=== PATIENT | male | born 1955 | race Caucasian/White ===

== ENCOUNTER → 2017-03-12 | Day surgery (SDC) | payer BC ==
[~2017-03-12] VITALS: Ht 185.4 cm; Wt 102.0 kg
[~2017-03-12] MED LIST: ACETAMINOPHEN 325 MG TAB PO PRN; AMLO-110 PO; ASPEC81 PO; ATOR10TA82 PO; ATROPINE SULFATE 0.1 MG/ML 5ML SYR IV PRN; BNC/40 PO; FENTANYL CITRATE INJ 50 MCG/1 ML 2 ML VIAL ONE; HEPARIN SOD (PORCINE) 1000 UNIT/ML 10 ML VIAL ONE; MIDAZOLAM HCL 1 MG/ML 2ML VIAL ONE; NITROGLYCERIN 0.4 MG SL PER TAB CHARGE SL PRN; NITROGLYCERIN/D5W 100MCG/ML 20ML SYR ONE; NiCARDipine HCL INJ 2.5 MG/ML 10 ML AMP ONE; SODIUM CHLORIDE 0.9% 1000ML 1,000 ML IV SCH; SODIUM CHLORIDE 0.9% 1000ML 250 ML IV PRN; VGR50 PO
[2017-03-12 08:38] VITALS: Ht 185.4 cm; Wt 102.0 kg
[2017-03-12 08:39] VITALS: BP 156/84; PULSE 55; TEMP 36.5; O2SAT 98
--- NOTE | 2017-03-12 10:37 | History & Physical Bridge Note ---
H&P Re-Evaluation Bridge Note: I have examined the patient, reviewed the History & Physical and in the interval since the performance of the History & Physical I have noted the following changes of clinical significance: No changes noted
--- NOTE | 2017-03-12 10:38 | Procedure Note ---
Pre-Mod Sedation Assessment General Date of Moderate Sedation: Mar 12, 2017. Vital Signs: Vital Signs Past 12 Hours Date Time Temp Pulse Resp B/P (MAP) Pulse Ox O2 Delivery O2 Flow Rate FiO2 03/12/17 10:30 47 15 121/72 (88) 99 Mask 2 03/12/17 08:39 36.5 55 16 156/84 98 Room Air Review Cardiovascular: regular rate, rhythm, no edema, no gallop, no JVD, no murmur Lungs: lungs clear Airway Class: II Pre-Sedation Airway Assessment Oral Cavity: WNL Short Thick Neck: No Hx of Sleep Apnea: No Smoking Status: Never Smoker Procedure Planning Contraindications-for Mod Sed: None Yes Notes The planned sedation has been discussed with the patient and consent obtained. I have identified the patient, determined the appropriateness of sedation and have assessed the patient immediately prior to the procedure. All medicine(s) and interventions are by my order.
--- NOTE | 2017-03-12 10:52 | [facility] Post Operative Brief Note ---
Preliminary Procedure Note Procedure Date Mar 12, 2017. Pre-Procedure Diagnosis Angina AUC Score 7 Post-Procedure Diagnosis Mild CAD Procedure(s) Performed Coronary Angiography Leather Polisher Dr. Quirino Jama Office Services Clerk(s) Mary Marsh Estimated Blood Loss <15cc Medication(s) Heparin (5000u IV), Nicardipine (250mcg intraarterial after sheath insertion), Nitroglycerin (200mcg intraarterial after sheath insertion), Lidocaine 1% ( local infiltration) Preliminary Findings Right dominant coronary anatomy Very large coronary artery caliber with mild ectasia Sinus bradycardia Recommendations Medical therapy and/or Counseling Specimens None Anesthesia Versed 1 mg IV, Fentanyl 12.5mcg IV Procedural Complication(s) None Disposition Groundskeeper Holding/Recovery
--- NOTE | 2017-03-12 10:55 | Discharge Instructions ---
Discharge Instructions Procedure Procedure Date: Mar 12, 2017. Reason for Visit: Unstable Angina *Dr. Jama. Discharge Discharge Date: Mar 12, 2017. Discharge Diagnosis: Large caliber coronary anatomy with mild coronary ectasia and no obstruction Last Recorded Wt (Kilograms): 102 Anesthesia Post Anesthesia Instructions: If you have had General Anesthesia or IV Sedation: * Do not drive today. * Resume driving when surgeon permits. * Do not make important decisions or sign legal documents today. * Call surgeon for: 1. Temperature elevations greater than 101 degrees F. 2. Uncontrollable pain. 3. Excessive bleeding. 4. Persistent nausea and vomiting. 5. Medication intolerance (nausea, vomiting or rash). * For nausea and vomiting use only clear liquids such as: tea, soda, bouillon until nausea subsides, then gradually increase diet as tolerated. * If you have any concerns or questions, call your surgeon's office. If physician is unavailable and it is an emergency, call 911 or go to the nearest emergency room. Instructions Activity Recommendations: limitations as noted below Recommended Home Diet: no limitations Allergies: Coded Allergies: No Known Drug Allergy (Verified Allergy, Unknown, `, 05/29/16) Provider Instructions ACTIVITY RECOMMENDATIONS: Excess manipulation of the wrist should be avoided for the next 24-48 hours. * No lifting over 2 pounds (approximately a 1/2 gallon of milk) with the utilized arm for 24 hours. * No strenuous activity such as bowling or tennis for 3 days. * Keep the site of the procedure covered with a bandage for 24 hours. *You may shower the day after the procedure. Do not take a tub bath or submerge the puncture site in water for the next 3 days. *Do not operate any motorized equipment for 3 days. SPECIAL CARE INSTRUCTIONS: The site may be slightly bruised and sore following your procedure. Should any of the following occur, contact the Dr. who performed your procedure. 1. Redness/inflammation, swelling, chills, or fever, or colored drainage at procedure site within 3-7 days after your procedure. 2. Coldness, discoloration, ongoing numbness, severe pain, or swelling. Expect mild tingling of hand and tenderness at the puncture site for up to three days. If this persists beyond three days, or other symptoms develop, notify the Dr. who performed your procedure. BLEEDING: If the procedure site on your wrist begins to bleed, do not panic 1. Place 1 or 2 fingers firmly just slightly above the insertion site to stop the bleeding. You may be able to feel your pulse as you hold pressure. 2. Lift your finger after 5 minutes to see if the bleeding has stopped. 3. Once the bleeding has stopped, gently wipe the wrist area clean with a bandage. * If the bleeding from your wrist does not stop after 10 minutes, or if there is a large amount of bleeding or spurting, call 911 (do not drive yourself to the hospital). SKIN IRRITATION: * You may experience some redness and/or swelling in the area where radiation was administered. If any skin irritation occurs, please contact your family physician. FOLLOW UP VISIT: Keep any scheduled doctor appointments. Follow Up Follow-up with: Dr Garcia as scheduled Anisa Cai Recommendations: Call your doctor if: * Temperature above 101 degrees * Pain not relieved by pain medicine ordered * There is increased drainage or redness from any incision * You have any unanswered questions or concerns. Your Doctors Instructions noted above were prepared by provider Quirino Jama. Patient Signature Section: Patient Instructions Signature Page Hilario aSge Patient (or Guardian) Signature/Date: I have read and understand the instructions given to me by my caregivers. Caregiver/RN/Doctor Signature/Date: The above-named patient and/or guardian has received patient instructions on this date. + Original Patient Signature Page (only) stays with chart. Please make copy for patient.
--- NOTE | 2017-03-12 11:51 | CARDIAC CATH REPORT ---
REFERRING PHYSICIAN: Dr. Ronn Garcia. INDICATIONS: Ongoing chest pain. BRIEF CARDIAC HISTORY: The patient is a 61-year-old male recently was evaluated with symptoms of exertional shortness of breath, chest pressure, and chest discomfort. He underwent stress echocardiography with symptoms of class 2-3 severity. Stress testing was equivocal with the patient having symptomatic complaints during the event although without overt ischemia. There are no signs of heart failure. He is referred for diagnostic cardiac catheterization. ACCESS: Right radial artery. CATHETERS: A 6-[place] long glide sheet, 5-[place] brachial 3.5, 5-[place] 3DRC, 5-[place] straight pigtail. CONTRAST: Nonionic x80 mL Visipaque. IV FLUIDS: 55 mL normal saline. SEDATION: Sedation start time was 10:08, completion time was 10:30. The patient received 1 mg IV Versed and 12.5 mg IV fentanyl. MEDICATIONS: Local anesthesia was performed with 1% lidocaine. After arterial access was gained, the patient received an intra-arterial injection of 250 mcg of nicardipine and 200 mcg of nitroglycerin. After central access gained, 5000 units IV heparin was given. RADIATION EXPOSURE: 7.7 minutes of fluoroscopy, 1798 milligrays with ta DAP score of 11,787. COMPLICATIONS: None. PROCEDURAL NOTES: Attempt was made to cross the aortic valve after coronary angiography, though due to root enlargement and tortuosity this was not pursued as catheter was near maximal insertion length at arrival to aortic valve cusps. RESULTS: CORONARY ANGIOGRAPHY: Right dominant coronary anatomy is present: LEFT MAIN: Left main is large in caliber and trifurcates to give rise to left anterior descending, a moderate sized ramus intermedius and the left circumflex. Left main has an area of midvessel ectasia enlargement and minimal taper of 10% at its distal most portion. There is no obstructive disease. LEFT ANTERIOR DESCENDING: Left anterior descending is type 3 in distribution and gives rise to a large bifurcating diagonal branch opposite a large septal branch in its mid portion and then courses to terminate well beyond the apex as a type 3 vessel. Within the left anterior descending is once again a large caliber vessel with mild ectatic changes and 20% taper after the first diagonal branch. The distal vessel is modest in caliber. RAMUS INTERMEDIUS: This is a moderate caliber vessel and is free of disease. LEFT CIRCUMFLEX: The left circumflex is modest in caliber. It gives rise to a moderate caliber obtuse marginal and continues along the AV groove as a small vessel giving rise to a posterolateral branch. There is no disease in the left circumflex. RIGHT CORONARY ARTERY: The right coronary is a very large caliber very large vessel, gives rise to a conus branch shortly after its origin, and a sinoatrial branch in its proximal third and then courses to give rise to a small acute marginal branch, early takeoff PDA and along the AV groove a long PDA and 2 large posterior ventricular branches. Within the right coronary artery, as noted the vessel is extremely large caliber and with mild ectasia in its midvessel but no obstructive disease is noted. LEFT VENTRICULAR ANGIOGRAPHY: LV angiography not performed. HEMODYNAMICS: Initial aortic root pressure was 98/62. Following coronary angiography aortic root pressure is 135/62, mean of 87. FINAL IMPRESSIONS: 1. Right dominant coronary anatomy. 2. Large caliber vessels with mild ectasia, but no significant obstructive disease with minimal irregularities. RECOMMENDATIONS: Continued medical therapy, risk factor modification. PROCEDURAL NOTES: The patient did have sinus bradycardia throughout the procedure rates of 45-50. MTDD
[2017-03-12 12:45] VITALS: BP 161/87; PULSE 65; O2SAT 98
== END | disposition home or self-care (01) ==
LOC: C.CATH 08:28
PROVIDERS: ATTEND Internal Medicine Cardiovascular Disease
DX: I20.0 Unstable angina (principal); I10 Essential (primary) hypertension; E78.5 Hyperlipidemia, unspecified; Z79.82 Long term (current) use of aspirin; Z96.649 Presence of unspecified artificial hip joint

== ENCOUNTER 2017-12-16 10:57 | Emergency (ER) | payer BC, OTHER ==
[~2017-12-16] VITALS: Ht 185.4 cm; Wt 105.1 kg
[~2017-12-16 10:57] MED LIST changes: -ACETAMINOPHEN 325 MG TAB PO PRN; -ATROPINE SULFATE 0.1 MG/ML 5ML SYR IV PRN; -FENTANYL CITRATE INJ 50 MCG/1 ML 2 ML VIAL ONE; -HEPARIN SOD (PORCINE) 1000 UNIT/ML 10 ML VIAL ONE; -MIDAZOLAM HCL 1 MG/ML 2ML VIAL ONE; -NITROGLYCERIN 0.4 MG SL PER TAB CHARGE SL PRN; -NITROGLYCERIN/D5W 100MCG/ML 20ML SYR ONE; -NiCARDipine HCL INJ 2.5 MG/ML 10 ML AMP ONE; -SODIUM CHLORIDE 0.9% 1000ML 1,000 ML IV SCH; -SODIUM CHLORIDE 0.9% 1000ML 250 ML IV PRN
[2017-12-16 11:09] VITALS: Ht 185.4 cm; Wt 105.1 kg
[2017-12-16] MEDS ORDERED: ASPI81TA28 PO (11:45)
[2017-12-16] MEDS ORDERED: SODIUM CHLORIDE 0.9% 1000ML 1,000 ML IV STA (11:55)
[2017-12-16] MEDS ORDERED: ONDANSETRON INJ 2 MG/ML 2 ML VIAL IV STA (11:55)
[2017-12-16] MEDS ORDERED: GLUCAGON FOR INJ 1 MG VIAL IV STA (11:56)
[2017-12-16 12:03] LABS: BASO % 0.1 %; BASO ABS # 0.01 K/uL (0-0.2); EOS % 1.5 %; HEMATOCRIT 49.5 % (42-52); HEMOGLOBIN 16.8 g/dL (14.0-18.0); IG# 0.02 K/uL (0.00-0.02); LYMPH % 19.2 %; MEAN CORPUSCULAR HEMOGLOBIN 30.5 pg (25-34); MEAN CORPUSCULAR HGB CONC 33.9 g/dl (32-36); MEAN PLATELET VOLUME 9.9 fL (7.4-10.4); MONO % 7.4 %; NEUT % 71.5 %; NEUT ABS # 4.85 K/uL (1.4-6.5); PLATELET COUNT 243 K/uL (130-400); RED CELL DISTRIBUTION WIDTH CV 12.8 % (11.5-14.5); WHITE BLOOD COUNT 6.78 K/uL (4.8-10.8)
[2017-12-16 12:10] LABS: CREATININE 1.08 mg/dl (0.60-1.40)
[2017-12-16 12:13] LABS: TOTAL PROTEIN 8.4 gm/dl (6.4-8.2)
--- NOTE | 2017-12-16 12:23 | DIAGNOSTIC IMAGING REPORT ---
CHEST ONE VIEW PORTABLE CLINICAL HISTORY: eso FB dysphagia. Foreign body. COMPARISON STUDY: 05/29/2016 FINDINGS: The bones soft tissues and hemidiaphragms are normal. The cardiomediastinal silhouette is normal. The lungs are clear. The pulmonary vasculature is normal. IMPRESSION: Negative chest. The above report was generated using voice recognition software. It may contain grammatical, syntax or spelling errors. Electronically signed by: Uli Soni M.D. 12/16/2017 12:22 PM Dictated Date/Time: 12/16/2017 12:21 PM
[2017-12-16] MEDS ORDERED: LORAZEPAM 2 MG/ML 1 ML VIAL IV STA (12:44)
--- NOTE | 2017-12-16 13:17 | Gastrointestinal Consultation ---
Gastrointestinal Consultation Date of Consultation: Dec 16, 2017 Attending Physician: Loki Hanson Consulting Physician: Jyoti Serna Reason for Consultation: Food bolus History of Present Illness Patient is a 62 year old male seen for food bolus. He reports he ate chicken at dinner around 6:30p. Since then felt food stuck on throat. Had been unable to swallow water or saliva. He had similar case of this in 2016, EGD showed Schatzski's ring. He never scheduled f/u esophageal dilation after food bolus was removed and never was on daily antacids. CBC, CMP, CXR normal. ED physician already tried Glucagon, going to try Ativan now. Past Medical/Surgical History Medical Problems: (1) Bolus impaction of digestive tract Status: Acute Past Medical History: HTN Hyperlipidemia Past Surgical History: Achilles tendon repair R hip replacement Inguinal hernia repair Family History Other kidney diseases Social History Smoking Status: Never Smoker Alcohol Use: none Drug Use: none Marital Status: Housing Status: lives with family Allergies Coded Allergies: No Known Drug Allergy (Verified Allergy, Unknown, `, 12/16/17) Current Medications Home Meds and Scripts Medications Dose Route/Sig Max Daily Dose Days Date Category Aspirin Ec (Aspirin) 81 Mg Tab 81 Mg PO DAILY 12/16/17 Reported Viagra (Sildenafil Citrate) 50 Mg Tab 50 Mg PO PRN 03/12/17 Reported Benicar (Olmesartan Medoxomil) 40 Mg Tab 40 Mg PO DAILY 05/29/16 Reported Norvasc (Amlodipine Besylate) 5 Mg Tab 5 Mg PO QPM 03/12/11 Reported Lipitor (Atorvastatin Calcium) 10 Mg Tab 10 Mg PO QAM 03/12/11 Reported Review of Systems Constitutional: No fever ENT: + trouble swallowing Respiratory: No cough, No shortness of breath Cardiac: No chest pain Abdomen: No pain, No nausea, No vomiting Physical Exam Date Time Temp Pulse Resp B/P (MAP) Pulse Ox O2 Delivery O2 Flow Rate FiO2 12/16/17 12:47 63 18 166/83 95 Room Air 12/16/17 11:12 97 Room Air 12/16/17 11:09 36.8 85 18 150/93 97 Room Air General Appearance: WD/WN, no apparent distress Eyes: normal inspection, PERRL, EOMI ENT: normal ENT inspection Neck: supple, no adenopathy Respiratory/Chest: normal breath sounds, no respiratory distress, no accessory muscle use Cardiovascular: regular rate, rhythm, no gallop, no murmur Abdomen: normal bowel sounds, non tender, soft Extremities: normal inspection, no pedal edema, no calf tenderness Neurologic/Psych: alert, normal mood/affect, oriented x 3 Skin: normal color, no jaundice, no rash Laboratory Results Last 24 Hours Test 12/16/17 11:40 White Blood Count 6.78 K/uL Red Blood Count 5.50 M/uL Hemoglobin 16.8 g/dL Hematocrit 49.5 % Mean Corpuscular Volume 90.0 fL Mean Corpuscular Hemoglobin 30.5 pg Mean Corpuscular Hemoglobin Concent 33.9 g/dl Platelet Count 243 K/uL Mean Platelet Volume 9.9 fL Neutrophils (%) (Auto) 71.5 % Lymphocytes (%) (Auto) 19.2 % Monocytes (%) (Auto) 7.4 % Eosinophils (%) (Auto) 1.5 % Basophils (%) (Auto) 0.1 % Neutrophils # (Auto) 4.85 K/uL Lymphocytes # (Auto) 1.30 K/uL Monocytes # (Auto) 0.50 K/uL Eosinophils # (Auto) 0.10 K/uL Basophils # (Auto) 0.01 K/uL RDW Standard Deviation 42.0 fL RDW Coefficient of Variation 12.8 % Immature Granulocyte % (Auto) 0.3 % Immature Granulocyte # (Auto) 0.02 K/uL Sodium Level 140 mmol/L Potassium Level 4.0 mmol/L Chloride Level 107 mmol/L Carbon Dioxide Level 26 mmol/L Anion Gap 7.0 mmol/L Blood Urea Nitrogen 13 mg/dl Creatinine 1.08 mg/dl Est Creatinine Clear Calc Drug Dose 91.4 ml/min Estimated GFR () 85.4 Estimated GFR (Non- 73.7 BUN/Creatinine Ratio 12.0 Random Glucose 100 mg/dl Calcium Level 9.0 mg/dl Total Bilirubin 0.9 mg/dl Direct Bilirubin 0.2 mg/dl Aspartate Amino Transf (AST/SGOT) 24 U/L Alanine Aminotransferase (ALT/SGPT) 28 U/L Alkaline Phosphatase 88 U/L Total Protein 8.4 gm/dl Albumin 4.0 gm/dl Lipase 163 U/L Impression Patient is a 62 year old male currently with food bolus. Hx of food bolus in 2016, presence of Schatzski's ring. He's not on a antacid on regular basis. Plan - Keep pt NPO - Plan for EGD for food disimpaction. - Further recs after EGD completed. I have seen and examined the patient with EMMIE Jimenez whose note reflects our findings and plan. Patient ate last evening. Unable to manage secretions. Nothing to eat since that time. Has h/o food bolus and schatzki ring. not on PPI, though advised to take in past. URGENT EGD in the OR today.
[2017-12-16 13:47] VITALS: O2SAT 97
--- NOTE | 2017-12-16 14:45 | Endo History and Physical ---
History & Physical Date of Service: Dec 16, 2017. Chief Complaint: food bolus Referring Physician: Dr. Arango History of Present Illness ate chicken around 6PM last evening. Unable to manage secretions Past Surgical History Hx Cardiac Surgery: No Hx Abdominal Surgery: No Hx Post-Op Nausea and Vomiting: No Hx Cancer Surgery: Yes (MELANOMA FROM FACE) Hx Thoracic Surgery: No Hx Orthopedic: No Hx Urinary Tract Surgery: No Social History Smoking Status: Never Smoker Hx Substance Use: No Allergies Coded Allergies: No Known Drug Allergy (Verified Allergy, Unknown, `, 12/16/17) Current Medications Reported Home Medications Medications Dose Route/Sig Max Daily Dose Days Date Category Aspirin Ec (Aspirin) 81 Mg Tab 81 Mg PO DAILY 12/16/17 Reported Viagra (Sildenafil Citrate) 50 Mg Tab 50 Mg PO PRN 03/12/17 Reported Benicar (Olmesartan Medoxomil) 40 Mg Tab 40 Mg PO DAILY 05/29/16 Reported Norvasc (Amlodipine Besylate) 5 Mg Tab 5 Mg PO QPM 03/12/11 Reported Lipitor (Atorvastatin Calcium) 10 Mg Tab 10 Mg PO QAM 03/12/11 Reported Vital Signs Weight (Kilograms): 105.100 Height (Feet): 6 Height (Inches): 1.00 Date Time Temp Pulse Resp B/P (MAP) Pulse Ox O2 Delivery O2 Flow Rate FiO2 12/16/17 13:47 89 18 153/89 97 Room Air 12/16/17 12:47 63 18 166/83 95 Room Air 12/16/17 11:12 97 Room Air 12/16/17 11:09 36.8 85 18 150/93 97 Room Air Physical Exam General Appearance: WD/WN, no apparent distress Assessment and Plan Urgent EGD in the OR today
--- NOTE | 2017-12-16 15:46 | GI REPORT ---
Procedure Date: 12/16/2017 3:32 PM Procedure: Upper GI endoscopy Indications: Dysphagia, Foreign body in the esophagus since 6:30 PM last evening; h/o food bolus 2015; not on PPI Medicines: Propofol per Anesthesia Complications: No immediate complications. Estimated blood loss: Minimal. Estimated Blood Loss: Estimated blood loss was minimal. Procedure: Pre-Anesthesia Assessment: - Prior to the procedure, a History and Physical was performed, and patient medications, allergies and sensitivities were reviewed. The patient's tolerance of previous anesthesia was reviewed. - The risks and benefits of the procedure and the sedation options and risks were discussed with the patient. All questions were answered and informed consent was obtained. - Patient identification and proposed procedure were verified prior to the procedure by the physician and the nurse. The procedure was verified in the pre-procedure area in the procedure room. - Mental Status Examination: alert and oriented. Airway Examination: normal oropharyngeal airway and neck mobility. Respiratory Examination: clear to auscultation. CV Examination: normal. Abdominal Examination: bowel sounds present, abdomen soft and non-tender, no masses or organomegaly noted. - ASA Grade Assessment: E - Emergency. After obtaining informed consent, the endoscope was passed under direct vision. Throughout the procedure, the patient's blood pressure, pulse, and oxygen saturations were monitored continuously. The Scope was introduced through the mouth, and advanced to the second part of duodenum. The upper GI endoscopy was accomplished without difficulty. The patient tolerated the procedure well. Findings: Non-severe esophagitis was found at the gastroesophageal junction. A non-obstructing Schatzki ring (acquired) was found in the lower third of the esophagus. A guidewire was placed and the scope was withdrawn. Dilation was performed with a Savary dilator with mild resistance at 51 Fr. Food (residue) was found in the gastric body. The examined duodenum was normal. Impression: - Non-severe erosive esophagitis at site where food had been impacted. No food in the esophagus. Food now in the stomach. presume it passed spontaneously in the last hour. - Non-obstructing Schatzki ring. Dilated. - Food (residue) in the stomach. - Normal examined duodenum. - No specimens collected. Recommendation: - Follow an antireflux regimen. - Use Prilosec (omeprazole) 20 mg PO BID for 6 weeks then once a day thereafter. - Repeat upper endoscopy for retreatment as needed. - Return to primary care physician as previously scheduled. - Discharge patient to home. Jyoti Serna D.O. Jyoti Serna, 12/16/2017 3:46:29 PM This report has been signed electronically. Note Initiated On: 12/16/2017 3:32 PM I attest to the content of the Intraoperative Record and orders documented therein, exceptions below
--- NOTE | 2017-12-16 15:51 | Discharge Instructions ---
Endoscopy Patient Instructions Date / Procedure(s) Performed Dec 16, 2017. EGD Allergy Information Coded Allergies: No Known Drug Allergy (Verified Allergy, Unknown, `, 12/16/17) Discharge Date / Findings Dec 16, 2017. esophagitis; schatzki ring Medication Instructions Restart Stopped Medication(s): OK to resume home medications Take omeprazole 20 mg twice a day for 6 weeks then once a day thereafter. Discuss further with your PCP, . Provider Instructions Activity Restrictions - No exercising or heavy lifting for 24 hours. - Do not drink alcohol the day of the procedure. - Do not drive a car or operate machinery until the day after the procedure. - Do not make any important decisions or sign important papers in 24 hours after the procedure. Following Day: - Return to full activity which may include returning to work/school. Diet Start your diet with liquids and soft foods today and tomorrow. OK to advance diet over the next few days as tolerated. Treatment For Common After Affects For mild abdominal pain, bloating, or excessive gas: - Rest - Eat lightly - Lie on right side Follow-Up Information Follow-up with as scheduled Anesthesia Information What You Should Know You have had a procedure that required some medicine to reduce anxiety and discomfort. This treatment is called moderate sedation. After receiving the treatment, you may be sleepy, but you will be able to breathe on your own. The effects of the treatment may last for several hours. Follow these instructions along with Activity/Diet recommendations noted above: * Do NOT do anything where dizziness or clumsiness would be dangerous. * Rest quietly at home today, then you can be up and about tomorrow. * Have a responsible person stay with you the rest of today. * You may have had an I.V. today. If so, you may take the dressing off later today. Recommendations Call your doctor if: * Trouble breathing * Continuous vomiting for more than 24 hours * Temperature above 101 degrees * Severe abdominal pain or bloating * Pain not relieved by pain medicine ordered * There is increased drainage or redness from any incision * A large amount of rectal bleeding greater than 2-3 tablespoons. (If you had a polyp/s removed or have hemorrhoids, a small amount of blood - from the rectum is to be expected.) * You have any unanswered questions or concerns. IN THE EVENT OF A SERIOUS EMERGENCY, GO TO THE NEAREST EMERGENCY ROOM Your discharge instructions were prepared by provider Jyoti Serna. Patient Instructions Signature Page Hilario Ferraraley Patient (or Guardian) Signature/Date: I have read and understand the instructions given to me by my caregivers. Caregiver/RN/Doctor Signature/Date: The above-named patient and/or guardian has received patient instructions on this date. + Original Patient Signature Page (only) stays with chart. Please make copy for patient.
[2017-12-16] MEDS ORDERED: LIDOCAINE HCL 2% 2 ML VIAL (20MG/ML) ONE (15:59)
[2017-12-16] MEDS ORDERED: SUCCINYLCHOLINE 100MG/5ML SYR IV ONE (15:59)
[2017-12-16] MEDS ORDERED: ROCURONIUM BROMIDE 10 MG/ML 5 ML VIAL IV ONE (15:59)
[2017-12-16] MEDS ORDERED: PROPOFOL IV EMULSION 10 MG/ML 20 ML VIAL IV ONE (15:59)
--- NOTE | 2017-12-16 16:13 | Anesthesiology Progress Note ---
Anesthesia Post Op Note Date & Time Dec 16, 2017 at 16:13 Vital Signs Pain Intensity: 0 Vital Signs Past 12 Hours Date Time Temp Pulse Resp B/P (MAP) Pulse Ox O2 Delivery O2 Flow Rate FiO2 12/16/17 16:10 36.2 75 16 141/87 95 Room Air 12/16/17 16:00 72 16 134/82 95 Room Air 12/16/17 15:52 36.2 76 16 141/86 99 Room Air 12/16/17 13:47 89 18 153/89 97 Room Air 12/16/17 12:47 63 18 166/83 95 Room Air 12/16/17 11:12 97 Room Air 12/16/17 11:09 36.8 85 18 150/93 97 Room Air Notes Mental Status: alert / awake / arousable, participated in evaluation Pt Amnestic to Procedure: Yes Nausea / Vomiting: adequately controlled Pain: adequately controlled Airway Patency, RR, SpO2: stable & adequate BP & HR: stable & adequate Hydration State: stable & adequate Anesthetic Complications: no major complications apparent
[2017-12-16 16:15] VITALS: BP 149/84; PULSE 72; TEMP 37.1; O2SAT 97
[2017-12-16] MEDS ORDERED: EpHEDrine SULFATE INJ 50 MG/ML AMP IV PRN (16:15)
[2017-12-16] MEDS ORDERED: ATROPINE SULFATE 0.1 MG/ML 5ML SYR IV PRN (16:15)
[2017-12-16 16:45] VITALS: BP 149/84; PULSE 72; TEMP 37.1; O2SAT 97
--- NOTE | 2017-12-16 18:29 | EMERGENCY ROOM VISIT NOTE ---
History Report prepared by Junito: Nicole Ferro Under the Supervision of: Silvana MariscalO. First contact with patient: 11:49 Chief Complaint: FOOD BOLUS Stated Complaint: OBJECT/FOOD CAUGHT IN THROAT Nursing Triage Summary: Pt was eating chicken last night around 1830 and he thinks it is still stuck. Pt reports he can't get anything to go down, saliva or water. Denies nausea or pain. Pt has had this before and has had to have scopes. History of Present Illness The patient is a 62 year old male who presents to the Emergency Room with complaints of esophageal foreign body. He notes that last night he was eating chicken and swallowed and felt it get stuck in his throat. He has had this once before in 2016. At that time he had a Schatzki's ring and a foreign body steak removed. He describes the discomfort in his esophagus as a 2 out of 10. He notes that it feels like an ache. Nothing makes it better. It is worsened by trying to swallow liquids or saliva. Anything that goes down he ends up vomiting back up. He has no other complaints. Pt denies headache, change in vision, fevers, chest pain, shortness of breath, nausea, diarrhea, pain with urination, and melena. 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 A total of 10 systems reviewed and were otherwise negative. Past Medical & Surgical Medical Problems: (1) Benign essential hypertension (2) Family history of other kidney diseases (3) Gastroesophageal reflux disease (4) Hypertension (5) Serum cholesterol borderline high Family History Other kidney diseases Social History Smoking Status: Never Smoker Marital Status: Housing Status: lives with family Current/Historical Medications Scheduled Amlodipine (Norvasc), 5 MG PO QPM Aspirin (Aspirin Ec), 81 MG PO DAILY Atorvastatin (Lipitor), 10 MG PO QAM Olmesartan Medoxomil (Benicar), 40 MG PO DAILY Sildenafil Citrate (Viagra), 50 MG PO PRN Allergies Coded Allergies: No Known Drug Allergy (Verified Allergy, Unknown, `, 12/16/17) Physical Exam Vital Signs Date Time Temp Pulse Resp B/P (MAP) Pulse Ox O2 Delivery O2 Flow Rate FiO2 12/16/17 16:45 37.1 72 18 149/84 97 Room Air 12/16/17 16:15 37.1 72 18 149/84 97 Room Air 12/16/17 16:10 36.2 75 16 141/87 95 Room Air 12/16/17 16:00 72 16 134/82 95 Room Air 12/16/17 15:52 36.2 76 16 141/86 99 Room Air 12/16/17 13:47 89 18 153/89 97 Room Air 12/16/17 12:47 63 18 166/83 95 Room Air 12/16/17 11:12 97 Room Air 12/16/17 11:09 36.8 85 18 150/93 97 Room Air Physical Exam GENERAL: Sitting up in bed, alert, talking in full sentences, well appearing, well nourished, no distress, non-toxic EYE EXAM: normal conjunctiva. OROPHARYNX: no exudate, no erythema, lips, buccal mucosa, and tongue normal and mucous membranes are moist NECK: supple, no nuchal rigidity, no adenopathy, non-tender, no stridor LUNGS: Clear to auscultation. Normal chest wall mechanics HEART: no murmurs, S1 normal and S2 normal ABDOMEN: abdomen soft, non-tender, normo-active bowel sounds, no masses, no rebound or guarding. SKIN: no rashes and no bruising UPPER EXTREMITIES: upper extremities are grossly normal. LOWER EXTREMITIES: No pitting edema. NEURO EXAM: Normal sensorium, cranial nerves II-XII grossly intact, normal speech, no gross weakness of arms, no gross weakness of legs. Medical Decision & Procedures ER Provider Diagnostic Interpretation: Radiology results as stated below per my review and the radiologist's interpretation: CHEST ONE VIEW PORTABLE CLINICAL HISTORY: eso FB dysphagia. Foreign body. COMPARISON STUDY: 05/29/2016 FINDINGS: The bones soft tissues and hemidiaphragms are normal. The cardiomediastinal silhouette is normal. The lungs are clear. The pulmonary vasculature is normal. IMPRESSION: Negative chest. The above report was generated using voice recognition software. It may contain grammatical, syntax or spelling errors. Electronically signed by: Uli Soni M.D. 12/16/2017 12:22 PM Dictated Date/Time: 12/16/2017 12:21 PM Laboratory Results 12/16/17 11:40 Red Blood Count 5.50, Mean Corpuscular Volume 90.0, Mean Corpuscular Hemoglobin 30.5, Mean Corpuscular Hemoglobin Concent 33.9, Mean Platelet Volume 9.9, Neutrophils (%) (Auto) 71.5, Lymphocytes (%) (Auto) 19.2, Monocytes (%) (Auto) 7.4, Eosinophils (%) (Auto) 1.5, Basophils (%) (Auto) 0.1, Neutrophils # (Auto) 4.85, Lymphocytes # (Auto) 1.30, Monocytes # (Auto) 0.50, Eosinophils # (Auto) 0.10, Basophils # (Auto) 0.01 12/16/17 11:40 Test 12/16/17 11:40 White Blood Count 6.78 K/uL (4.8-10.8) Red Blood Count 5.50 M/uL (4.7-6.1) Hemoglobin 16.8 g/dL (14.0-18.0) Hematocrit 49.5 % (42-52) Mean Corpuscular Volume 90.0 fL (80-100) Mean Corpuscular Hemoglobin 30.5 pg (25-34) Mean Corpuscular Hemoglobin Concent 33.9 g/dl (32-36) Platelet Count 243 K/uL (130-400) Mean Platelet Volume 9.9 fL (7.4-10.4) Neutrophils (%) (Auto) 71.5 % Lymphocytes (%) (Auto) 19.2 % Monocytes (%) (Auto) 7.4 % Eosinophils (%) (Auto) 1.5 % Basophils (%) (Auto) 0.1 % Neutrophils # (Auto) 4.85 K/uL (1.4-6.5) Lymphocytes # (Auto) 1.30 K/uL (1.2-3.4) Monocytes # (Auto) 0.50 K/uL (0.11-0.59) Eosinophils # (Auto) 0.10 K/uL (0-0.5) Basophils # (Auto) 0.01 K/uL (0-0.2) RDW Standard Deviation 42.0 fL (36.4-46.3) RDW Coefficient of Variation 12.8 % (11.5-14.5) Immature Granulocyte % (Auto) 0.3 % Immature Granulocyte # (Auto) 0.02 K/uL (0.00-0.02) Anion Gap 7.0 mmol/L (3-11) Est Creatinine Clear Calc Drug Dose 91.4 ml/min Estimated GFR () 85.4 Estimated GFR (Non- 73.7 BUN/Creatinine Ratio 12.0 (10-20) Calcium Level 9.0 mg/dl (8.5-10.1) Total Bilirubin 0.9 mg/dl (0.2-1) Direct Bilirubin 0.2 mg/dl (0-0.2) Aspartate Amino Transf (AST/SGOT) 24 U/L (15-37) Alanine Aminotransferase (ALT/SGPT) 28 U/L (12-78) Alkaline Phosphatase 88 U/L (45-117) Total Protein 8.4 gm/dl (6.4-8.2) Albumin 4.0 gm/dl (3.4-5.0) Lipase 163 U/L (73-393) Laboratory results per my review. Medications Administered Medications (Trade) Dose Ordered Sig/Katy Route Start Time Stop Time Status Last Admin Dose Admin Sodium Chloride 1,000 ml @ 999 mls/hr Q1H1M STAT IV 12/16/17 11:55 12/16/17 12:55 DC 12/16/17 12:04 999 MLS/HR Ondansetron HCl (Zofran Inj) 4 mg NOW STAT IV 12/16/17 11:55 12/16/17 11:57 DC 12/16/17 12:04 4 MG Glucagon (Glucagon Inj) 1 mg NOW STAT IV 12/16/17 11:56 12/16/17 11:58 DC 12/16/17 12:04 1 MG Lorazepam (Ativan Inj) 1 mg NOW STAT IV 12/16/17 12:44 12/16/17 12:45 DC 12/16/17 12:50 1 MG ED Course ED COURSE: Vital signs were reviewed and showed hypertensive. The patients medical record was reviewed The above diagnostic studies were performed and reviewed. ED treatments and interventions as stated above. 1149: The patient was evaluated in room B12B. A complete history and physical examination was performed. 1155: Zofran 4 mg IV, NSS 1000 ml @ 999 mls/hr IV 1156: Glucagon 1 mg IV 1238: I reassessed the patient at this time. He is still not feeling well and has been unable to successfully swallow any water. 1243: I spoke with EMMIE Garsia with GI. We discussed the patient's case. She will come to the ED to evaluate the patient for further management. 1244: Ativan 1 mg IV 1257: I spoke with Jevon Charles again at this time. She will be taking the patient either to the endo suite or the OR. 1339: Upon reevaluation, the patient is resting more comfortably. I discussed my findings with the patient and he understands and agrees with the treatment plan. Based on the patients age, coexisting illnesses, exam and lab findings the decision to treat as an inpatient was made. The patient remained stable while under my care. The patient will be taken to the OR for further management. Medical Decision Differential diagnoses includes but is not limited to gastritis, peptic ulcer disease, GERD, gallbladder disease, pancreatitis, small bowel obstruction, acute coronary syndrome, pericarditis, ischemic bowel, irritable bowel disease, irritable bowel syndrome, appendicitis, diverticulitis, malignancy, hernia, urinary tract infection, torsion, perforation, trauma, infectious. Patient is a 62-year-old male that presents to ER following eating a piece of chicken last night and has been unable to swallow since then. Patient has not been tolerating his secretions. Upon review of his chart he had this once before 2 years ago which was secondary to a Schatzki's ring at the GE junction. CBC and BMP along with LFTs, bilirubin lipase is normal. Chest x-ray unremarkable. Patient was given glucagon and Ativan without improvement. He was given fluids. I did consult GI. He was taken to the OR for EGD. Medication Reconcilliation Current Medication List: was personally reviewed by me Blood Pressure Screening Patient's blood pressure: Elevated blood pressure Blood pressure disposition: Elevated BP felt to be situational Consults Time Called: 1240 Consulting Physician: EMMIE Garsia Returned Call: 1240 I spoke with EMMIE Garsia with GI. We discussed the patient's case. She will come to the ED to evaluate the patient for further management. Additional Consults: Time Called: 1257 Consulted Physician: EMMIE Garsia Returned Call: 1257 Additional Comments: I spoke with Jevon Charles again at this time. She will be taking the patient either to the endo suite or the OR. Impression Primary Impression: Esophageal foreign body Scribe Attestation The scribe's documentation has been prepared under my direction and personally reviewed by me in its entirety. I confirm that the note above accurately reflects all work, treatment, procedures, and medical decision making performed by me. Departure Information Dispostion Being Evaluated By Surgeon Referrals No Doctor, Assigned (PCP) Patient Instructions My [facility] Problem Qualifiers Primary Impression: Esophageal foreign body Encounter type: initial encounter Qualified Codes: T18.108A - Unspecified foreign body in esophagus causing other injury, initial encounter
== END 2017-12-16 14:21 | disposition still patient (30) ==
LOC: C.EDB 10:59
DX: K20.8 Other esophagitis (principal); K22.2 Esophageal obstruction; K21.9 Gastro-esophageal reflux disease without esophagitis; I10 Essential (primary) hypertension; E78.5 Hyperlipidemia, unspecified; Z79.82 Long term (current) use of aspirin; Z79.899 Other long term (current) drug therapy; Z98.890 Other specified postprocedural states; Z84.1 Family history of disorders of kidney and ureter

== ENCOUNTER 2022-12-02 02:24 | Observation (INO) ==
[2022-12-02] MEDS ORDERED: ONDANSETRON INJ 2 MG/ML 2 ML VIAL IV STA (02:48)
[2022-12-02] MEDS ORDERED: SODIUM CHLORIDE 0.9% 1000ML 1,000 ML IV STA (02:48)
[2022-12-02] MEDS ORDERED: HYDROmorphone INJ 0.5 MG/0.5 ML SYR IV STA ×2 (02:48→03:37)
[2022-12-02 03:06] LABS: Appearance Urine Clear (Clear); Bacteria Urine Automated Negative (Negative); Bilirubin Urine Negative (Negative); Blood Urine Negative (Negative); Color Urine Yellow; Glucose Urine UA Negative (Negative); Ketones Urine 1+ (Negative); Leukocyte Esterase Urine Negative (Negative); Nitrite Urine Negative (Negative); Protein Urine Trace (Negative); Specific Gravity Urine 1.026 (1.000-1.030); Urobilinogen Urine Negative (Negative)
[2022-12-02 03:06] LABS: Basophils # (auto) 0.02 K/uL (0-0.2); Basophils % (auto) 0.2 %; Eosinophils # (auto) 0.05 K/uL (0-0.50); Eosinophils % (auto) 0.5 %; Hematocrit (blood only) 39.6 % (42.0-52.0); Hemoglobin 13.7 g/dl (14.0-18.0); Immature Granulocytes # (auto) 0.02 K/uL (0.01-0.20); Immature Granulocytes % (auto) 0.2 %; Lymphocytes # (auto) 0.91 K/uL (1.2-3.4); Lymphocytes % (auto) 9.3 %; Mean Corpuscular Hemoglobin 30.8 pg (25.0-34.0); Mean Corpuscular Hgb Conc 34.6 g/dL (32.0-36.0); Mean Platelet Volume 9.6 fL (9.4-12.4); Monocytes # (auto) 0.57 K/uL (0.11-0.59); Monocytes % (auto) 5.9 %; Neutrophils # (auto) 8.17 K/uL (1.40-6.50); Neutrophils % (auto) 83.9 %; Platelet Count 241 K/uL (130-400); RDW Coefficient of Variation 12.5 % (11.5-14.5); RDW Standard Deviation 40.3 fL (36.4-46.3); Red Blood Count 4.45 M/uL (4.70-6.10); White Blood Count 9.74 K/ul (4.8-10.8)
[2022-12-02 03:22] LABS: Albumin Globulin Ratio 1.4 (0.9-2); Albumin Level 4.3 gm/dl (3.4-5.0); BUN Creatinine Ratio 17.2 (10-20); Bilirubin,Total 0.6 mg/dl (0.2-1.0); Calcium 9.2 mg/dl (8.5-10.1); Creatinine Clr Calc Pharmacy 52.6 ml/min; Est GFR (African American) 46.3 ml/min; Potassium 4.3 mmol/L (3.5-5.1); Total Protein 7.3 gm/dl (6.0-8.3)
[2022-12-02] MEDS ORDERED: KETOROLAC TROMETHAMINE 15 MG/ML VIAL IV ONE (03:37)
--- NOTE | 2022-12-02 04:03 | CT Scan Report ---
Exam(s): CT ABDOMEN + PELVIS Without Contrast EXAM: CT Abdomen and Pelvis Without Intravenous Contrast CLINICAL HISTORY: Reason for exam: L flank pain, known stone @ OSH. TECHNIQUE: Axial computed tomography images of the abdomen and pelvis without intravenous contrast. Automated exposure control was utilized for the study. A dose lowering technique was utilized adhering to the principles of ALARA. COMPARISON: No relevant prior studies available. FINDINGS: Lung bases: Unremarkable. No mass. No consolidation. Mediastinum: Small hiatal hernia. ABDOMEN: Liver: Unremarkable. Gallbladder and bile ducts: Distended gallbladder. No obvious wall thickening or calcified stones. No ductal dilation. Pancreas: Unremarkable. No ductal dilation. Spleen: Unremarkable. No splenomegaly. Adrenals: Unremarkable. No mass. Kidneys and ureters: 9 mm obstructing calculus in the mid left ureter. Moderate left hydroureteronephrosis and perinephric stranding. Nonobstructing small right renal calculus. 2 cm right renal, likely cyst. Stomach and bowel: Unremarkable. No obstruction. No mucosal thickening. PELVIS: Appendix: Normal appendix. Bladder: Unremarkable. No stones. Reproductive: Unremarkable as visualized. ABDOMEN and PELVIS: Intraperitoneal space: Unremarkable. No free air. No significant fluid collection. Bones/joints: Right hip prosthesis with some artifact in the pelvis multiple phleboliths in the pelvis. No acute fracture. No dislocation. Soft tissues: Fat-containing bilateral inguinal hernias. Small fat- containing umbilical hernia. Vasculature: See above. Lymph nodes: Unremarkable. No enlarged lymph nodes. IMPRESSION: 1. 9 mm obstructing calculus in the mid left ureter. Moderate left hydroureteronephrosis and perinephric stranding. 2. Nonobstructing small right renal calculus. Electronically signed by: Francisco Francois M.D. 12/02/22 04:02 AM
--- NOTE | 2022-12-02 05:57 | Emergency Department Note ---
Impression & Plan Colic, ureteral, Kidney stone on left side ED Provider Note CHIEF COMPLAINT: Left sided abdominal pain, kidney stone HISTORY OF PRESENT ILLNESS: This 67-year-old patient with a history of kidney stone, hypertension, right hip replacement presents to the emergency department with complaints of increasing left-sided abdominal pain. The patient was seen at an outside facility yesterday under similar circumstances. He states the performed CAT scan and he was diagnosed with stone "too large to pass." Patient was given oxycodone and advised to follow-up with urology. He states he has not established with urology. 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 Patient states the pain is not subsiding and is periodically excruciating. He has not been able to sleep. He denies any vomiting or fevers. REVIEW OF SYSTEMS: A review of systems was performed with positives and pertinent negatives listed in the history of present illness. 10 systems were reviewed and are otherwise negative. ALLERGIES: see below MEDICATIONS: see below PMH: see below SOCIAL HISTORY: see below DDx: Renal colic, UTI, appendicitis, diverticulitis, mesenteric ischemia, aortic pathology, infections, inflammatory bowel disease, PUD, biliary pathology, as well as other pathologies. PHYSICAL EXAM: Vital signs reviewed. General: Well-appearing 67 yo male, in no significant distress. HEENT: No scleral icterus, PERRLA, neck supple. Atraumatic. Cardiovascular: Regular rate and rhythm, no extra sounds. Pulmonary: Clear to auscultation bilaterally, normal work of breathing. Abdomen: Soft, nontender, nondistended, positive bowel sounds. No significant CVA tenderness Musculoskeletal: Atraumatic, no peripheral edema. Neurologic: Patient awake alert and oriented x 3, speech is clear Skin: Warm, dry, no rash EMERGENCY DEPARTMENT COURSE/MDM: This patient was evaluated and appeared to be in no significant distress. IV access was obtained and laboratory work was dr mcclellan. The patient was placed on the campus monitor and noted to be in a normal sinus rhythm. Patient was hydrated with normal saline solution, given IV Dilaudid and Zofran for his discomfort. CT imaging of the abdomen pelvis was performed and reveals a 9 mm stone in the left ureter. Urinalysis reveals trace blood, no infection. Laboratory work is reassuring. Patient may be suffering from a mild acute kidney injury with a creatinine of 1.7. I did speak with Dr. Castro of urology who will evaluate the patient this morning. Patient's case was discussed with the hospitalist service, Dr. Malik who will evaluate the patient for admission and further management. Patient and were made aware of the findings and agreed. MONITORING: An order for cardiac monitoring was placed and the patient is noted to be in a normal sinus rhythm at 72 beats per minute. RADIOLOGY: CT imaging of the abdomen pelvis to my interpretation reveals a left sided intraureteral stone approximately 9 mm. There is moderate right hydronephrosis. Otherwise defer to radiology DISPOSITION: Admission Past Med/Surg History Medical History AA (aortic aneurysm) UNSURE OF SIZE- FOLLOWS WITH DR. WALTERS/SAI > LAST CHECKED IN SEP 2018- NO CHANGES GERD (gastroesophageal reflux disease) Hyperlipidemia Hypertension Left hip pain Osteoarthritis Surgical History History of colonoscopy History of right hip replacement History of total hip arthroplasty RIGHT Hx of cataract extraction LEFT Hx of vasectomy Melanoma FACE/ REMOVED Family History Father Family history of reaction to anesthesia FATHER PASSED AFTER ANESTHESIA AFTER HIP SURGERY 1995 @ [facility]- PT DOES NOT KNOW EXACT CAUSE Social History Smoking Status: Never smoker Second Hand Exposure: No; Do You Dip or Chew Tobacco: No; Tobacco Cessation Education Requested by Patient: No Hx Alcohol Use: Yes Alcohol type: beer Hx Substance Use: No Preferred Language: Swiss Communication Ability: Effective Pneumatic Tester Required: No Beliefs That Will Affect Care: None Current Living Situation: Spouse Other Information That Helps Us Care for You: No Feels Safe at Home: Yes Safety Concerns: Feels Safe At This Time Assistive Devices: None Allergies Allergies Allergy/AdvReac Type Severity Reaction Status Date / Time No Known Allergies Allergy Verified 12/02/22 02:58 Home Meds Home Medications Medication Instructions Recorded Confirmed amlodipine 10 mg tablet 10 mg PO HS 08/03/19 12/02/22 atorvastatin 10 mg tablet (Lipitor) 10 mg PO QAM 08/03/19 12/02/22 olmesartan 40 mg tablet (Benicar) 20 mg PO QAM 08/03/19 12/02/22 omeprazole magnesium 20 mg 20 mg PO DAILY PRN 08/03/19 12/02/22 tablet,delayed release (Prilosec HEARTBURN/INDIGESTION OTC) aspirin 81 mg tablet,delayed 81 mg PO DAILY 12/02/22 12/02/22 release ondansetron 4 mg disintegrating 4 mg translingual Q8H PRN 12/02/22 12/02/22 tablet NAUSEA/VOMITING oxycodone-acetaminophen 5 mg-325 1 tab PO QID PRN Pain 12/02/22 12/02/22 mg tablet tamsulosin 0.4 mg capsule 0.4 mg PO DAILY 12/02/22 12/02/22 Results & Data (ED) Vital Signs Vital Signs - 24 hr 12/02/22 02:29 12/02/22 03:01 12/02/22 03:15 Temperature 36.6 C Temperature Source Temporal Artery Scan Pulse Rate 72 66 Respiratory Rate 18 Respiratory Depth Normal Blood Pressure 138/81 Blood Pressure Mean 100 Pulse Oximetry 95 94 Oxygen Delivery Method Room Air Room Air Sepsis Recent Fever Within 48 Hours No Sepsis New/Unexplained Change in Mental Status N/A Sepsis Action Taken by Nursing No Action Required Home Medications Current Medication List: was personally reviewed by me Laboratory Data Attestation: I reviewed the patient's lab results. 12/02/22 02:52 12/02/22 02:52 Lab Results 12/02/22 12/02/22 12/02/22 Range/Units 02:36 02:52 02:52 WBC 9.74 (4.8-10.8) K/ul RBC 4.45 L (4.70-6.10) M/uL Hgb 13.7 L (14.0-18.0) g/dl Hct 39.6 L (42.0-52.0) % MCV 89.0 (80.0-100.0) fL MCH 30.8 (25.0-34.0) pg MCHC 34.6 (32.0-36.0) g/dL RDW Std Deviation 40.3 (36.4-46.3) fL RDW Coeff of Trinity 12.5 (11.5-14.5) % Plt Count 241 (130-400) K/uL MPV 9.6 (9.4-12.4) fL Immature Gran % (Auto) 0.2 % Neut % (Auto) 83.9 % Lymph % (Auto) 9.3 % Hutchinson % (Auto) 5.9 % Eos % (Auto) 0.5 % Baso % (Auto) 0.2 % Neut # (Auto) 8.17 H (1.40-6.50) K/uL Lymph # (Auto) 0.91 L (1.2-3.4) K/uL Hutchinson # (Auto) 0.57 (0.11-0.59) K/uL Eos # (Auto) 0.05 (0-0.50) K/uL Baso # (Auto) 0.02 (0-0.2) K/uL Immature Gran # (Auto) 0.02 (0.01-0.20) K/uL Sodium 138 (136-145) mmol/L Potassium 4.3 (3.5-5.1) mmol/L Chloride 106 (98-107) mmol/L Carbon Dioxide 26 (21-32) mmol/L Anion Gap 6 (3-11) BUN 30 H (6-23) mg/dl Creatinine 1.74 H (0.6-1.4) mg/dl Est Cr Clr Drug Dosing 52.6 ml/min Est GFR ( Amer) 46.3 ml/min Est GFR (Non-Af Amer) 40.0 ml/min BUN/Creatinine Ratio 17.2 (10-20) Glucose 160 H (70-99(Fasting)) mg/dl Calcium 9.2 (8.5-10.1) mg/dl Total Bilirubin 0.6 (0.2-1.0) mg/dl AST 16 (13-39) U/L ALT 16 (7-52) U/L Alkaline Phosphatase 59 (34-104) U/L Total Protein 7.3 (6.0-8.3) gm/dl Albumin 4.3 (3.4-5.0) gm/dl Globulin 3.0 (2.5-4.0) gm/dl Albumin/Globulin Ratio 1.4 (0.9-2) Lipase 45 (11-82) U/L Urine Color Yellow Urine Appearance Clear (Clear) Urine pH 5.0 (4.5-7.5) Ur Specific Dozier 1.026 (1.000-1.030) Urine Protein Trace H (Negative) Urine Glucose (UA) Negative (Negative) Urine Ketones 1+ H (Negative) Urine Blood Negative (Negative) Urine Nitrite Negative (Negative) Urine Bilirubin Negative (Negative) Urine Urobilinogen Negative (Negative) Ur Leukocyte Esterase Negative (Negative) Urine WBC (Auto) 1-5 (0-5) /hpf Urine RBC (Auto) 5-10 H (0-4) /hpf U Hyaline Cast (Auto) 1-5 (0-5) /lpf U Epithel Cells (Auto) 10-20 H (0-5) /lpf Urine Bacteria (Auto) Negative (Negative) SARS-CoV-2, RNA, NAAT (NEGATIVE) 12/02/22 Range/Units 02:56 WBC (4.8-10.8) K/ul RBC (4.70-6.10) M/uL Hgb (14.0-18.0) g/dl Hct (42.0-52.0) % MCV (80.0-100.0) fL MCH (25.0-34.0) pg MCHC (32.0-36.0) g/dL RDW Std Deviation (36.4-46.3) fL RDW Coeff of Trinity (11.5-14.5) % Plt Count (130-400) K/uL MPV (9.4-12.4) fL Immature Gran % (Auto) % Neut % (Auto) % Lymph % (Auto) % Hutchinson % (Auto) % Eos % (Auto) % Baso % (Auto) % Neut # (Auto) (1.40-6.50) K/uL Lymph # (Auto) (1.2-3.4) K/uL Hutchinson # (Auto) (0.11-0.59) K/uL Eos # (Auto) (0-0.50) K/uL Baso # (Auto) (0-0.2) K/uL Immature Gran # (Auto) (0.01-0.20) K/uL Sodium (136-145) mmol/L Potassium (3.5-5.1) mmol/L Chloride (98-107) mmol/L Carbon Dioxide (21-32) mmol/L Anion Gap (3-11) BUN (6-23) mg/dl Creatinine (0.6-1.4) mg/dl Est Cr Clr Drug Dosing ml/min Est GFR ( Amer) ml/min Est GFR (Non-Af Amer) ml/min BUN/Creatinine Ratio (10-20) Glucose (70-99(Fasting)) mg/dl Calcium (8.5-10.1) mg/dl Total Bilirubin (0.2-1.0) mg/dl AST (13-39) U/L ALT (7-52) U/L Alkaline Phosphatase (34-104) U/L Total Protein (6.0-8.3) gm/dl Albumin (3.4-5.0) gm/dl Globulin (2.5-4.0) gm/dl Albumin/Globulin Ratio (0.9-2) Lipase (11-82) U/L Urine Color Urine Appearance (Clear) Urine pH (4.5-7.5) Ur Specific Dozier (1.000-1.030) Urine Protein (Negative) Urine Glucose (UA) (Negative) Urine Ketones (Negative) Urine Blood (Negative) Urine Nitrite (Negative) Urine Bilirubin (Negative) Urine Urobilinogen (Negative) Ur Leukocyte Esterase (Negative) Urine WBC (Auto) (0-5) /hpf Urine RBC (Auto) (0-4) /hpf U Hyaline Cast (Auto) (0-5) /lpf U Epithel Cells (Auto) (0-5) /lpf Urine Bacteria (Auto) (Negative) SARS-CoV-2, RNA, NAAT NEGATIVE (NEGATIVE) Administered Medications Sodium Chloride (Nss 1000ml) 1,000 mls @ 125 mls/hr IV .Q8H MERCEDEZ Stop: 01/01/23 06:09 Last Admin: 12/02/22 06:23 Dose: 125 mls/hr Documented By: RLP Ceftriaxone Sodium 2,000 mg/ (Dextrose) 70 mls @ 140 mls/hr IV Q24H MERCEDEZ Stop: 12/12/22 06:29 Last Infusion: 12/02/22 07:23 Dose: 0 mls/hr Documented By: Admin: 12/02/22 06:50 Dose: 140 mls/hr Documented By: RLP Discontinued Medications Hydromorphone HCl (Hydromorphone Inj 0.5 Mg/0.5 Ml Syr) 0.5 mg IV NOW STA Stop: 12/02/22 02:49 Last Admin: 12/02/22 02:57 Dose: 0.5 mg Documented By: VICKY Hydromorphone HCl (Hydromorphone Inj 0.5 Mg/0.5 Ml Syr) 0.5 mg IV NOW STA Stop: 12/02/22 03:38 Last Admin: 12/02/22 03:41 Dose: 0.5 mg Documented By: VICKY Sodium Chloride (Nss 1000ml) 1,000 mls @ 999 mls/hr IV .Q1H1M STA Stop: 12/02/22 03:48 Last Infusion: 12/02/22 04:08 Dose: 0 mls/hr Documented By: Admin: 12/02/22 02:57 Dose: 999 mls/hr Documented By: VICKY Ketorolac Tromethamine (Ketorolac Tromethamine 15 Mg/Ml Vial) 10 mg IV NOW ONE Stop: 12/02/22 03:38 Last Admin: 12/02/22 03:40 Dose: 10 mg Documented By: VICKY Ondansetron HCl (Ondansetron Inj 2 Mg/Ml 2 Ml Vial) 4 mg IV NOW STA Stop: 12/02/22 02:49 Last Admin: 12/02/22 02:58 Dose: 4 mg Documented By: VICKY Imaging Data Radiologist's Impression: Abdomen/Pelvis CT 12/02/22 02:57 Exam(s): CT ABDOMEN + PELVIS Without Contrast EXAM: CT Abdomen and Pelvis Without Intravenous Contrast CLINICAL HISTORY: Reason for exam: L flank pain, known stone @ OSH. TECHNIQUE: Axial computed tomography images of the abdomen and pelvis without intravenous contrast. Automated exposure control was utilized for the study. A dose lowering technique was utilized adhering to the principles of ALARA. COMPARISON: No relevant prior studies available. FINDINGS: Lung bases: Unremarkable. No mass. No consolidation. Mediastinum: Small hiatal hernia. ABDOMEN: Liver: Unremarkable. Gallbladder and bile ducts: Distended gallbladder. No obvious wall thickening or calcified stones. No ductal dilation. Pancreas: Unremarkable. No ductal dilation. Spleen: Unremarkable. No splenomegaly. Adrenals: Unremarkable. No mass. Kidneys and ureters: 9 mm obstructing calculus in the mid left ureter. Moderate left hydroureteronephrosis and perinephric stranding. Nonobstructing small right renal calculus. 2 cm right renal, likely cyst. Stomach and bowel: Unremarkable. No obstruction. No mucosal thickening. PELVIS: Appendix: Normal appendix. Bladder: Unremarkable. No stones. Reproductive: Unremarkable as visualized. ABDOMEN and PELVIS: Intraperitoneal space: Unremarkable. No free air. No significant fluid collection. Bones/joints: Right hip prosthesis with some artifact in the pelvis multiple phleboliths in the pelvis. No acute fracture. No dislocation. Soft tissues: Fat-containing bilateral inguinal hernias. Small fat- containing umbilical hernia. Vasculature: See above. Lymph nodes: Unremarkable. No enlarged lymph nodes. IMPRESSION: 1. 9 mm obstructing calculus in the mid left ureter. Moderate left hydroureteronephrosis and perinephric stranding. 2. Nonobstructing small right renal calculus. Electronically signed by: Francisco Francois M.D. 12/02/22 04:02 AM Discharge Plan Visit Data Chief Complaint: Kidney Stone Stated Complaint: KIDNEY STONE ED Provider: Vianca Jasso Discharge Problem: Colic, ureteral, Kidney stone on left side Patient Disposition: Admitted As Inpatient Discharge Instructions Interventions: ED Discharge Assessment Last Done: 12/02/22 05:47
[2022-12-02] MEDS ORDERED: HYDROmorphone INJ 0.5 MG/0.5 ML SYR IV PRN (06:10)
[2022-12-02] MEDS ORDERED: cefTRIAXone SODIUM 1,000 MG in DEXTROSE 5% AD-VAN 50 ML IV SCH (06:10)
[2022-12-02] MEDS ORDERED: POLYETHYLENE (MIRALAX) 17 GM PACK PO PRN (06:10)
[2022-12-02] MEDS ORDERED: ACETAMINOPHEN 325 MG TAB PO PRN (06:10)
[2022-12-02] MEDS ORDERED: hydrALAZINE HCL 20 MG/ML VIAL IV PRN (06:10)
[2022-12-02] MEDS ORDERED: ONDANSETRON INJ 2 MG/ML 2 ML VIAL IV PRN ×2 (06:10→15:41)
[2022-12-02] MEDS ORDERED: PANTOprazole 40 MG TAB PO PRN (06:19)
[2022-12-02] MEDS: SODIUM CHLORIDE 0.9% 1000ML 1,000 ML IV SCH ×2 (06:23→18:23)
[2022-12-02] MEDS: cefTRIAXone SODIUM 2,000 MG in DEXTROSE 5% 50 ML IV SCH (06:50)
--- NOTE | 2022-12-02 06:56 | History and Physical Report ---
DATE OF ADMISSION: 12/02/2022. CHIEF COMPLAINT: Left flank pain. HISTORY OF PRESENT ILLNESS: A 67-year-old male with past medical history significant for hyperlipidemia, thoracic aortic aneurysm without rupture, hypertension, lower esophageal rings(schatzki), chronic kidney disease stage III, secondary hyperparathyroidisms of renal origin, presents with left flank pain. The patient says never had a kidney stone. The patient is having pain for the last 2-3 days, severe yesterday, went to [facility], was found to have kidney stone and discharged to follow as outpatient, but again in the morning, the pain got worse and so he came here. Imaging CAT scan showing 9-mm left mid ureter, kidney stone, moderate hydronephrosis and perinephric stranding. Nonobstructing small right renal calculus. The patient is resting comfortably, hemodynamically stable. Denies any chest pain, no shortness of breath, no cough, no fevers. He said he had couple of episodes of vomiting in the morning. Denies any headache. Has some mild dizziness, no blurred visions, no earache, no runny nose, no sore throat. . No burning micturition, no hematuria. Normal bladder and bowel movements. No swelling in the legs. ALLERGIES: No known drug allergies. PAST MEDICAL HISTORY: As mentioned above. PAST SURGICAL HISTORY: Colonoscopy, dental surgery, EGDs, food impaction removal successful,Schatzki ring, cataract surgery, repair of inguinal hernia, repair of ruptured Achilles tendon of the left leg in 1995, right total hip replacement, vitrectomy with removal of epiretinal membrane. MEDICATIONS: The patient is on amlodipine 10 mg p.o. at bedtime, aspirin 81 mg p.o. daily, Lipitor 10 mg p.o. a.m., Benicar 20 mg p.o. a.m., omeprazole 20 mg p.o. daily p.r.n., Zofran 4 mg p.o. q. 8 hours p.r.n., oxycodone/acetaminophen 5/325 mg 1 tablet p.o. q.i.d. p.r.n., Flomax 0.4 mg p.o. daily. FAMILY HISTORY: Significant for brother has diabetes, eye problems, hypertension; father has hypertension, diabetes; mother has hypertension, polycystic kidney disease, eye problems. SOCIAL HISTORY: , no smoking. Alcohol socially. No drug use. REVIEW OF SYSTEMS: As per HPI. Rest of review of systems is negative. PHYSICAL EXAMINATION: GENERAL: The patient is of moderate build, not in acute distress. VITAL SIGNS: Temperature 36.6, pulse 66, respiratory rate 18, blood pressure 138/81, oxygen 94% on room air. HEENT: Pupils equal, round and reactive to light. Oral mucosa moist. NECK: No JVD, no neck masses. CARDIOVASCULAR: S1 and S2 heard. Regular rate and rhythm. No murmur, no gallop. RESPIRATORY SYSTEM: Normal AP diameter. No accessory muscle use. No wheezing, no crackles. ABDOMEN: Soft, bowel sounds present, nontender. Mild left lower quadrant tenderness. No CVA tenderness. No guarding. No rigidity, no distention. CENTRAL NERVOUS SYSTEM: Cranial nerves II through XII grossly intact, nonfocal. EXTREMITIES: No edema, no erythema. LABORATORY DATA: WBC 9.7, hemoglobin 13.7, hematocrit 39.6, platelets 241. Sodium 138, potassium 4.3, chloride 106, bicarb 26, BUN 30, creatinine 1.7, serum glucose 160, calcium 9.2, total bilirubin 0.6, AST 16, ALT 16, alkaline phosphatase 59, lipase 45. Urinalysis, +1 ketones. SARS-CoV-2 rapid test negative. IMAGING DATA: CT abdomen and pelvis without contrast shows a 9-mm obstructing calculus in the mid left ureter, moderate left hydronephrosis and perinephric stranding, nonobstructive small right renal calculus. ASSESSMENT AND PLAN: This 67-year-old male presents with left renal colic. 1. Left renal colic. CAT scan showing 9-mm mid left ureter stone with moderate left hydroureteronephrosis and perinephric stranding and also nonobstructive small right renal calculus. Urology consulted by the ER. Empirically started on Rocephin. IV fluids, n.p.o., IV Dilaudid p.r.n. Continue Flomax and closely monitor in the hospital . Await Urology input. 2. Hypertension. Continue amlodipine with holding parameters. Holding Benicar for lizeth. iv hydralazine prn. 3. Hyperlipidemia. Continue statin. 4. Acute kidney injury on chronic kidney disease, stage III. Baseline creatinine around 1.6 . Today Cr 1.7. We will follow the labs. Getting fluids. Avoid nephrotoxic agents.Holding Benicar for now. 5. Deep venous thrombosis prophylaxis. Sequential compression devices for now. DISPOSITION: Closely monitor in medical floor. Expect to discharge home and follow with family doctor. Job ID: [id number]
--- NOTE | 2022-12-02 08:37 | Urology Consultation ---
Date of Consultation December 02, 2022 Assessment & Plan (1) Left ureteral stone: (2) Colic, ureteral: Plan 67yo/M admitted with intractable left flank pain secondary to an obstructing ureteral stone CT abdomen pelvis reviewed and notable for a 9 mm obstructing calculus in the mid left ureter with moderate left hydroureteronephrosis and perinephric stranding; Nonobstructing small right renal calculus. He is afebrile and hemodynamically stable. Labs show no leukocytosis and JUANITO on CKD with creatinine 1.74. Urinalysis not indicative of infection. Received IV ceftriaxone this morning. We discussed acute stone management with cystoscopy and stent placement. Ureteral stents were discussed as well as postoperative issues and pain management. He is aware a second procedure will be necessary for stone treatment in the future. Patient agreeable to proceeding, all questions were answered. Will proceed to OR today for cystoscopy, left retrograde pyelogram, left ureteral stent placement. Risks and benefits were discussed as per consent. OR notified. COVID test negative. Covered with scheduled IV ceftriaxone. Keep NPO. Continue supportive care, flomax, and pain management. Urology will follow. Attending note: Patient independently examined, interviewed, assessed, and evaluated. Agree with all as above. Patient's labs were all reviewed hemoglobin is stable. White count is 9.74. Creatinine is elevated at 1.74. Patient was COVID-negative on testing. All vitals were reviewed nonfebrile. Patient has no signs of tachycardia or hypotension. Patient's imaging was reviewed interpreted by myself. Patient has a considerable obstructive stone with considerable perinephric stranding and hydronephrosis on the left. Concern for possible infection/inflammation of the kidney. Reviewed extensively options. Patient is currently admitted with supportive care hydration and undergoing maximal expulsion therapy. Patient has been given Rocephin IV with the last dose this morning. Discussed options for conservative measure and maximum expulsion medical therapy and symptom controlled. Discussed ESWL. Discussed Ureteroscopy with extraction and/or laser lithotripsy. Risks and benefits were discussed. Stone free rates were also discussed as well as possibility of multiple procedures. Ureteral stents were discussed as well as post-operative issues and pain management. All questions were answered. Risks and benefits discussed at length for procedure. These include bleeding, infection, injury to surrounding tissues or organs, and risks associated with anesthesia. Patient states understanding and agrees to proceed. Will sign consent and schedule. Discussed option for stent placement for drainage of kidney and management of possible infection and obstructive issues. Patient was agreeable. We will plan for cystoscopy with possible left stent placement and retrograde pyelogram. History of Present Illness Attending Physician: Chacorta Lazaro MD History of Present Illness 67-year-old male with past medical history significant for hyperlipidemia, thoracic aortic aneurysm without rupture, hypertension, lower esophageal rings(schatzki), chronic kidney disease stage III, secondary hyperparathyroidisms of renal origin who presented with intractable left flank pain and found to have a 9 mm left mid ureteral stone causing moderate hydronephrosis and perinephric stranding. CT abdomen pelvis-9 mm obstructing calculus in the mid left ureter with moderate left hydroureteronephrosis and perinephric stranding; Nonobstructing small right renal calculus. Afebrile and hemodynamically stable. Labs show no leukocytosis and JUANITO on CKD with creatinine 1.74. Urinalysis not indicative of infection. Patient examined at bedside this AM. Awake, resting in bed on arrival. No acute distress. at bedside. Has been NPO. Denies fevers or chills. No nausea or vomiting. Still with left flank pain. Voiding without issue. No hematuria or dysuria. Received IV ceftriaxone this morning. On Flomax and aspirin. Denies hx of stones. Allergies Allergy/AdvReac Type Severity Reaction Status Date / Time No Known Allergies Allergy Verified 12/02/22 02:58 Home Medications Medication Instructions Recorded Confirmed Type amlodipine 10 mg tablet 10 mg PO HS 08/03/19 12/02/22 History atorvastatin 10 mg tablet (Lipitor) 10 mg PO QAM 08/03/19 12/02/22 History olmesartan 40 mg tablet (Benicar) 20 mg PO QAM 08/03/19 12/02/22 History omeprazole magnesium 20 mg 20 mg PO DAILY PRN 08/03/19 12/02/22 History tablet,delayed release (Prilosec HEARTBURN/INDIGESTION OTC) aspirin 81 mg tablet,delayed 81 mg PO DAILY 12/02/22 12/02/22 History release ondansetron 4 mg disintegrating 4 mg translingual Q8H PRN 12/02/22 12/02/22 History tablet NAUSEA/VOMITING oxycodone-acetaminophen 5 mg-325 1 tab PO QID PRN Pain 12/02/22 12/02/22 History mg tablet tamsulosin 0.4 mg capsule 0.4 mg PO DAILY 12/02/22 12/02/22 History Patient History Medical History AA (aortic aneurysm) UNSURE OF SIZE- FOLLOWS WITH DR. WALTERS/SAI > LAST CHECKED IN SEP 2018- NO CHANGES GERD (gastroesophageal reflux disease) Hyperlipidemia Hypertension Left hip pain Osteoarthritis Surgical History History of colonoscopy History of right hip replacement History of total hip arthroplasty RIGHT Hx of cataract extraction LEFT Hx of vasectomy Melanoma FACE/ REMOVED Family History Father Family history of reaction to anesthesia FATHER PASSED AFTER ANESTHESIA AFTER HIP SURGERY [address] [facility]- PT DOES NOT KNOW EXACT CAUSE Social History Smoking Status: Never smoker Second Hand Exposure: No; Do You Dip or Chew Tobacco: No; Tobacco Cessation Education Requested by Patient: No Hx Alcohol Use: Yes Alcohol type: beer Hx Substance Use: No Preferred Language: Kazakh Communication Ability: Effective Assistant Account Executive Required: No Beliefs That Will Affect Care: None Current Living Situation: Spouse Other Information That Helps Us Care for You: No Feels Safe at Home: Yes Safety Concerns: Feels Safe At This Time Assistive Devices: None Review of Systems Review of Systems: All systems reviewed & are unremarkable except as noted in HPI & below Physical Exam Constitutional: well developed and well nourished; no acute distress Eyes: PERRL, conjunctivae normal, anicteric sclerae ENMT: external ear and nose normal, oropharynx normal Neck: normal visual inspection Respiratory: normal respiratory effort; no respiratory distress and no labored breathing Musculoskeletal: Head/Neck/Chest: normocephalic Skin: No visible rashes or lesions to exposed skin areas Neurologic: moves all extremities and awake Psychiatric: A+Ox3, euthymic affect Results & Data ([facility]) Vital Signs (Past 12 Hours) Vital Signs Temp Pulse Pulse Resp BP BP Pulse Ox 12/02/22 07:25 36.7 C 69 16 134/68 96 12/02/22 06:23 36.5 C 64 18 147/80 H 96 12/02/22 03:15 66 12/02/22 03:01 94 12/02/22 02:29 36.6 C 72 18 138/81 95 O2 Del Method 12/02/22 07:25 Room Air 12/02/22 06:23 Room Air 12/02/22 03:15 12/02/22 03:01 Room Air 12/02/22 02:29 Room Air PG Care Time/CCT Total # of Minutes Spent Total Time Spent with Patient: Total time spent is greater than 50% in coordination of care (as documented) at patient's floor/unit and/or counseling patient: Coding Level of Care Code 23919 INT INP/OBS CARE 2/55MIN Diagnoses Left ureteral stone N20.1 Colic, ureteral N23
[2022-12-02] MEDS: ASPIRIN 81 MG ECTAB PO SCH (10:01)
[2022-12-02] MEDS: TAMSULOSIN HCL 0.4 MG CAP PO SCH (10:02)
[2022-12-02] MEDS: ATORVASTATIN 10 MG TAB PO SCH (10:02)
[2022-12-02] MEDS ORDERED: fentaNYL citrate PF 100 MCG/2 ML VIAL ONE (15:09)
[2022-12-02] MEDS ORDERED: MIDAZOLAM HCL 1 MG/ML 2ML VIAL ONE (15:27)
[2022-12-02] MEDS ORDERED: HYDROmorphone INJ 1 MG/ML SYRINGE IV PRN (15:41)
[2022-12-02] MEDS ORDERED: ATROPINE SULFATE 0.1 MG/ML 10ML SYR IV PRN (15:41)
[2022-12-02] MEDS ORDERED: ePHEDrine sulfate 50 MG/ML AMP IV PRN (15:41)
--- NOTE | 2022-12-02 15:41 | Anesthesiology Consultation ---
Date of Service December 02, 2022 Assessment & Plan Chart Review Chart Review: Acceptable Risk for Surgery ASA ASA2 Proposed Anesthesia Anesthesia Type: General and MAC Risk / Benefits Reviewed With: PT / POA / Parent / Guardian and Accepts Plan History Surgery Operation Date: 12/02/22 13:10 Proposed Procedures p Cystoscopy Left Retrograde Pyelogram and Stent Placement - Anil Malin, DO Height/Weight Height: 6 ft 1 in Weight: 102.1 kg Allergies Allergy/AdvReac Type Severity Reaction Status Date / Time No Known Allergies Allergy Verified 12/02/22 02:58 Medications Home Medications Medication Instructions Recorded Confirmed Last Taken amlodipine 10 mg tablet 10 mg PO HS 08/03/19 12/02/22 12/01/22 atorvastatin 10 mg tablet (Lipitor) 10 mg PO QAM 08/03/19 12/02/22 12/01/22 olmesartan 40 mg tablet (Benicar) 20 mg PO QAM 08/03/19 12/02/22 12/01/22 omeprazole magnesium 20 mg 20 mg PO DAILY PRN 08/03/19 12/02/22 08/08/19 tablet,delayed release (Prilosec HEARTBURN/INDIGESTION OTC) aspirin 81 mg tablet,delayed 81 mg PO DAILY 12/02/22 12/02/22 12/01/22 release ondansetron 4 mg disintegrating 4 mg translingual Q8H PRN 12/02/22 12/02/22 Unknown tablet NAUSEA/VOMITING oxycodone-acetaminophen 5 mg-325 1 tab PO QID PRN Pain 12/02/22 12/02/22 Unknown mg tablet tamsulosin 0.4 mg capsule 0.4 mg PO DAILY 12/02/22 12/02/22 12/01/22 Active Medications Generic Name Dose Route Start Last Admin Trade Name Freq PRN Reason Stop Dose Admin Aspirin 81 mg 12/02/22 09:00 12/02/22 10:01 Aspirin 81 Mg Ectab PO 01/01/23 08:59 Not Given DAILY MERCEDEZ Atorvastatin Calcium 10 mg 12/02/22 09:00 12/02/22 10:02 Atorvastatin 10 Mg Tab PO 01/01/23 08:59 Not Given QAM MERCEDEZ Hydromorphone HCl 0.5 mg 12/02/22 06:10 12/02/22 08:52 Hydromorphone Inj 0.5 Mg/0.5 Ml Syr IV 12/16/22 06:09 0.5 mg Q3H PRN Administration Pain Sodium Chloride 1,000 mls @ 125 mls/hr 12/02/22 06:10 12/02/22 06:23 Nss 1000ml IV 01/01/23 06:09 125 mls/hr .Q8H MERCEDEZ Administration Ceftriaxone Sodium 2,000 mg/ 70 mls @ 140 mls/hr 12/02/22 06:30 12/02/22 07:23 Dextrose IV 12/12/22 06:29 Infused Q24H MERCEDEZ Infusion Tamsulosin HCl 0.4 mg 12/02/22 09:00 12/02/22 10:02 Tamsulosin Hcl 0.4 Mg Cap PO 01/01/23 08:59 Not Given DAILY MERCEDEZ NPO Date Last Intake of Fluids: 12/01/22 Time Last Intake of Fluids: 00:00 Date Last Intake of Solids: 12/01/22 Time Last Intake of Solids: 10:30 Past Medical History Medical History AA (aortic aneurysm) UNSURE OF SIZE- FOLLOWS WITH DR. WALTERS/SAI > LAST CHECKED IN SEP 2018- NO CHANGES GERD (gastroesophageal reflux disease) Hyperlipidemia Hypertension Left hip pain Osteoarthritis Exercise / Class Metabolic Activity II 4-5 Yardwork/Stairs/Walk up hill Past Family History Family History Father Family history of reaction to anesthesia FATHER PASSED AFTER ANESTHESIA AFTER HIP SURGERY 1995 @ [facility]- PT DOES NOT KNOW EXACT CAUSE Past Surgical History Surgical History History of colonoscopy History of right hip replacement History of total hip arthroplasty RIGHT Hx of cataract extraction LEFT Hx of vasectomy Melanoma FACE/ REMOVED Past Anesthesia History No Hx of Anesthesia Complications History of PONV No Hx of PONV Social History Smoking Status: Never smoker Do You Dip or Chew Tobacco: No Hx Alcohol Use: Yes Alcohol type: beer alcohol intake frequency: holidays/special occasions only Hx Substance Use: No substance use type: does not use Review of Systems ROS Unobtainable: All systems reviewed & are unremarkable except as noted in HPI & below Constitutional: as per Subjective / HPI; no fever, no chills and no sweats Eyes: see below Respiratory: no cough, no chest congestion and no dyspnea on exertion Cardiovascular: no chest pain, no chest pain at rest, no chest pain with activity and no syncope Genitourinary (Male): + as per Subjective / HPI Neurologic: no gait abnormality, no unsteadiness, no numbness and no paresthesia Endocrine: no problem reported Hematologic / Lymphatic: no problem reported Allergy / Immunological: no problem reported Physical Exam Vital Signs Last Vital Signs Temp 36.7 C 12/02/22 13:20 Pulse 69 12/02/22 13:20 Resp 18 12/02/22 13:20 BP 168/85 H 12/02/22 13:20 Pulse Ox 97 12/02/22 13:20 O2 Del Method Room Air 12/02/22 13:20 Constitutional no acute distress ENMT Mouth: no TMJ abnormality Thyromental Distance: > or= 3.5 Finger Breadths Mallampati Class: II Neck normal visual inspection and trachea midline Respiratory normal respiratory effort Auscultation: lungs clear to auscultation bilaterally Cardiovascular Rate/Rhythm: regular rate and regular rhythm Heart Sounds: no murmur Neurologic moves all extremities Psychiatric Orientation: alert and oriented x 3 Testing Laboratory Results 12/02/22 02:52 12/02/22 02:52 Urine Color Yellow 12/02/22 02:36 Urine Appearance Clear (Clear) 12/02/22 02:36 Urine pH 5.0 (4.5-7.5) 12/02/22 02:36 Ur Specific [place] 1.026 (1.000-1.030) 12/02/22 02:36 Urine Protein Trace (Negative) H 12/02/22 02:36 Urine Glucose (UA) Negative (Negative) 12/02/22 02:36 Urine Ketones 1+ (Negative) H 12/02/22 02:36 Urine Nitrite Negative (Negative) 12/02/22 02:36 Ur Leukocyte Esterase Negative (Negative) 12/02/22 02:36 Urine WBC (Auto) 1-5 /hpf (0-5) 12/02/22 02:36 Urine RBC (Auto) 5-10 /hpf (0-4) H 12/02/22 02:36 U Hyaline Cast (Auto) 1-5 /lpf (0-5) 12/02/22 02:36 U Epithel Cells (Auto) 10-20 /lpf (0-5) H 12/02/22 02:36 Urine Bacteria (Auto) Negative (Negative) 12/02/22 02:36
[2022-12-02] MEDS ORDERED: PROPOFOL IV EMULSION 10 MG/ML 20 ML VIAL IV ONE (15:52)
[2022-12-02] MEDS ORDERED: ONDANSETRON INJ 2 MG/ML 2 ML VIAL ONE (15:52)
--- NOTE | 2022-12-02 15:57 | Operative Report ---
PG Post Operative Report Pre & Post Diagnosis Operation Date: 12/02/22 13:10 Pre-Op Diagnosis: Kidney Stone Post-Op Diagnosis: Kidney Stone I identified the patient and participated in the time-out.: Yes Procedure Operation Date: 12/02/22 13:10 Actual Procedures p Cystoscopy with Left Retrograde Pyelogram and Stent Placement(Left) - Anil Malin DO Surgeon Anil Malin, II, DO Senior Storage Administrator None Estimated Blood Loss 0 Findings Consistent with Post-Op Diagnosis Stent placed in good position. Specimens Urine Left Kidney Drains 6 Fr Multilength Anesthesia Type MAC Complications none Disposition Disposition: Recovery Room Indications Patient with obstruction. Risks and benefits discussed at length. Description of Procedure Patient was consented and brought back to the operating room. Patient was placed under anesthesia in the supine position and moved to the dorsal lithotomy position. Patient was prepped and draped in the regular sterile fashion. A time out was completed. A 30degree Cystoscope was placed into the bladder and the entire bladder was examined. The UO's were identified. The left UO was cannulized with a catheter, urine aspiration, and a retrograde pyelogram was completed. A wire was then placed. With the wire in place, a 6 Fr Double J stent was placed. It was confirmed with fluoroscopy. With the stent in place, the bladder was emptied. The scope was removed. The patient was cleaned, aroused from anesthesia, and transferred to the pacu in stable conditio n having tolerated the procedure well with no complications. I was present and participated in all aspects of the procedure. The patient will be monitored in the PACU until transferred. Plan to transfer to the floor. Continue antibiotics. Will plan stone treatment in 1-2 weeks. I attest to the content of the Intraoperative Record and any orders documented therein. Any exceptions are noted below.
[2022-12-02] MEDS ORDERED: DIATRIZOATE MEGLUMINE 30% 100ML VIAL INSTIL ONE (16:04)
--- NOTE | 2022-12-02 16:23 | Fluoroscopy Report ---
FL retrograde includes kub CLINICAL HISTORY: LTleft-sided cystourethrogram COMPARISON STUDY: CT abdomen and pelvis of same day FLUOROSCOPY TIME: 11 seconds FLUOROSCOPY IMAGES: 4 EXPOSURE DOSE: 2.53 mGy FINDINGS: A left-sided stent appears to be in satisfactory positioning. Mild left-sided hydronephrosi s redemonstrated. IMPRESSION: Fluoroscopic assistance as above. ACT 112: Negative or not required by law. Electronically signed by: Parish Perez M.D. 12/02/2022 4:21 PM
--- NOTE | 2022-12-02 20:03 | Anesthesiology Progress Note ---
Date of Service December 02, 2022 Anesthesia Post Procedure Vital Signs Vital Signs: Temp Pulse Pulse Pulse Resp BP BP 12/02/22 18:31 68 16 12/02/22 17:35 71 16 12/02/22 17:05 37 C 62 16 12/02/22 16:36 37.2 C 64 16 12/02/22 16:20 36.3 C L 64 13 139/75 12/02/22 16:10 36.4 C L 67 14 132/73 12/02/22 16:04 36.4 C L 74 17 139/69 12/02/22 13:20 36.7 C 69 18 168/85 H 12/02/22 07:25 36.7 C 69 16 134/68 12/02/22 06:23 36.5 C 64 18 147/80 H 12/02/22 03:15 66 12/02/22 03:01 12/02/22 02:29 36.6 C 72 18 138/81 BP Pulse Ox O2 Del Method 12/02/22 18:31 159/76 H 95 Room Air 12/02/22 17:35 151/74 H 94 Room Air 12/02/22 17:05 149/75 H 97 Room Air 12/02/22 16:36 148/74 H 95 Room Air 12/02/22 16:20 94 Room Air 12/02/22 16:10 94 Room Air 12/02/22 16:04 94 Room Air 12/02/22 13:20 97 Room Air 12/02/22 07:25 96 Room Air 12/02/22 06:23 96 Room Air 12/02/22 03:15 12/02/22 03:01 94 Room Air 12/02/22 02:29 95 Room Air Pain Intensity Left Flank: Pain Intensity: 2 Transfer of Care Handoff Completed per policy Notes Mental Status: alert / awake / arousable and participated in evaluation Patient Amnestic to Procedure: Yes Nausea / Vomiting: adequately controlled Pain: adequately controlled Airway Patency, RR, SpO2: stable & adequate BP & HR: stable & adequate Hydration State: stable & adequate Anesthetic Complications: no major complications apparent and Pt Satisfied with anesthetic care
[2022-12-02] MEDS ORDERED: amLODIPine BESYLATE 5 MG TAB PO SCH (21:00)
[2022-12-03] MEDS: SODIUM CHLORIDE 0.9% 1000ML 1,000 ML IV SCH (02:52)
[2022-12-03] MEDS: cefTRIAXone SODIUM 2,000 MG in DEXTROSE 5% 50 ML IV SCH (05:42)
[2022-12-03 06:16] LABS: Basophils # (auto) 0.03 K/uL (0-0.2); Basophils % (auto) 0.5 %; Eosinophils # (auto) 0.18 K/uL (0-0.50); Eosinophils % (auto) 2.8 %; Hemoglobin 11.9 g/dl (14.0-18.0); Immature Granulocytes # (auto) 0.02 K/uL (0.01-0.20); Immature Granulocytes % (auto) 0.3 %; Lymphocytes # (auto) 1.42 K/uL (1.2-3.4); Lymphocytes % (auto) 22.1 %; Mean Corpuscular Hemoglobin 30.7 pg (25.0-34.0); Mean Corpuscular Volume 90.2 fL (80.0-100.0); Mean Platelet Volume 9.8 fL (9.4-12.4); Monocytes # (auto) 0.84 K/uL (0.11-0.59); Monocytes % (auto) 13.1 %; Neutrophils # (auto) 3.94 K/uL (1.40-6.50); Neutrophils % (auto) 61.2 %; Platelet Count 207 K/uL (130-400); RDW Coefficient of Variation 12.8 % (11.5-14.5); Red Blood Count 3.88 M/uL (4.70-6.10); White Blood Count 6.43 K/ul (4.8-10.8)
[2022-12-03 06:31] LABS: BUN Creatinine Ratio 13.8 (10-20); Calcium 8.7 mg/dl (8.5-10.1); Est GFR (African American) 51.3 ml/min; Est GFR (Non-African American) 44.2 ml/min; Magnesium 1.9 mg/dl (1.7-2.4); Potassium 4.1 mmol/L (3.5-5.1)
--- NOTE | 2022-12-03 08:21 | Urology Progress Note ---
Date of Service December 03, 2022 Assessment & Plan (1) Left ureteral stone: (2) Colic, ureteral: Plan 67yo/M admitted with intractable left flank pain secondary to an obstructing 9 mm mid left ureteral stone with moderate left hydronephrosis and perinephric stranding Now postop day #1 status post cystoscopy and left ureteral stent placement. Overall feeling well, tolerating the ureteral stent with minimal bother. He is afebrile and hemodynamically stable. Labs show no leukocytosis, stable hemoglobin, creatinine improved to 1.60 today. Intraoperative urine culture from left kidney is pending. Continues on IV ceftriaxone. Okay to d/c from perspective. Recommend d/c with course of PO antibiotics, Tamsulosin, prn Pyridium and prn pain medication for stent management. Will arrange outpatient follow-up with our service for definitive stone management. Urology will sign-off. Please contact us with any further questions, concerns, or changes in patient's status. Admission and Anticipated Discharge Date Admission Date: December 02, 2022 Subjective Patient seen and examined at bedside this AM. Awake, resting in bed on arrival. No acute distress. Tolerating the stent with minimal bother. Reports occasional left flank pain, but manageable. Notes some hematuria and dysuria with urination. No fevers or chills. Denies nausea or vomiting. Review of Systems Constitutional: as per Subjective / HPI; no fever and no chills Gastrointestinal: no abdominal pain, no nausea and no vomiting Genitourinary: + as per Subjective / HPI Physical Exam Constitutional: well developed and well nourished; no acute distress Respiratory: normal respiratory effort; no respiratory distress and no labored breathing Musculoskeletal: Head/Neck/Chest: normocephalic Skin: No visible rashes or lesions to exposed skin areas Neurologic: moves all extremities and awake Psychiatric: A+Ox3, euthymic affect Results & Data ([facility]) Vital Signs (Past 12 Hours) Vital Signs Temp Pulse Pulse Resp BP Pulse Ox O2 Del Method 12/03/22 07:53 36.8 C 57 L 16 152/78 H 94 Room Air 12/03/22 03:57 36.6 C 60 16 145/78 H 98 Room Air PG Care Time/CCT Total # of Minutes Spent Total Time Spent with Patient: Total time spent is greater than 50% in coordination of care (as documented) at patient's floor/unit and/or counseling patient: Coding Level of Care Code 03047 SUB INP/OBS CARE MIN Diagnoses Left ureteral stone N20.1 Colic, ureteral N23
[2022-12-03] MEDS: ATORVASTATIN 10 MG TAB PO SCH (09:30)
[2022-12-03] MEDS: TAMSULOSIN HCL 0.4 MG CAP PO SCH (09:30)
[2022-12-03] MEDS: ASPIRIN 81 MG ECTAB PO SCH (09:30)
--- NOTE | 2022-12-03 11:06 | Discharge Summary ---
Discharge Summary Date of Service December 03, 2022 Notes For Next Care Provider Patient was admitted to [facility] secondary to obstructing 9 mm left ureteral stone. He underwent cystoscopy with ureteral stent placement by [facility] urology. He will follow-up with urology for definitive stone treatment. It is recommended he continue on Flomax daily. He is being treated with ciprofloxacin 500 mg twice daily for additional 5 days. At time of discharge urine culture is pending. Initial urinalysis did not appear infected; however treating empirically in setting of urologic procedure. Patient with CKD stage IIIb, creatinine on admission was 1.7 and on day of discharge was 1.6. Medication Changes From Visit Flomax 0.4 mg once daily Ciprofloxacin 500 mg twice daily for 5 additional days Oxycodone acetaminophen 1 tablet every 6 hours as needed for severe pain Pyridium 100 mg every 8 hours as needed for moderate stent pain Admission HPI Per Admitting Provider HISTORY OF PRESENT ILLNESS: A 67-year-old male with past medical history significant for hyperlipidemia, thoracic aortic aneurysm without rupture, hypertension, lower esophageal rings(schatzki), chronic kidney disease stage III, secondary hyperparathyroidisms of renal origin, presents with left flank pain. The patient says never had a kidney stone. The patient is having pain for the last 2-3 days, severe yesterday, went to [facility], was found to have kidney stone and discharged to follow as outpatient, but again in the morning, the pain got worse and so he came here. Imaging CAT scan showing 9-mm left mid ureter, kidney stone, moderate hydronephrosis and perinephric stranding. Nonobstructing small right renal calculus. The patient is resting comfortably, hemodynamically stable. Denies any chest pain, no shortness of breath, no cough, no fevers. He said he had couple of episodes of vomiting in the morning. Denies any headache. Has some mild dizziness, no blurred visions, no earache, no runny nose, no sore throat. . No burning micturition, no hematuria. Normal bladder and bowel movements. No swelling in the legs. Admission Exam Per Admitting Provider PHYSICAL EXAMINATION: GENERAL: The patient is of moderate build, not in acute distress. VITAL SIGNS: Temperature 36.6, pulse 66, respiratory rate 18, blood pressure 138/81, oxygen 94% on room air. HEENT: Pupils equal, round and reactive to light. Oral mucosa moist. NECK: No JVD, no neck masses. CARDIOVASCULAR: S1 and S2 heard. Regular rate and rhythm. No murmur, no gallop. RESPIRATORY SYSTEM: Normal AP diameter. No accessory muscle use. No wheezing, no crackles. ABDOMEN: Soft, bowel sounds present, nontender. Mild left lower quadrant tenderness. No CVA tenderness. No guarding. No rigidity, no distention. CENTRAL NERVOUS SYSTEM: Cranial nerves II through XII grossly intact, nonfocal. EXTREMITIES: No edema, no erythema. Principal Dx & Hospital Course #1 = Principal Diagnosis (1) Left ureteral stone: (2) Colic, ureteral: Plan This is a 67 male who has significant past medical history of HTN, HLD, CKD stage IIIb and secondary hyperparathyroidism who presented to ED secondary to left flank pain. He was found to have a 9 mm mid left ureter stone with moderate left hydroureteronephrosis and perinephric stranding and also nonobstructive small right renal calculi. He was started on IV Rocephin, IV fluids and treated for pain control. He was also started on Flomax. Urology was consulted and patient underwent cystoscopy with left ureteral stent placement. He will follow-up with them as outpatient for definitive management of ureteral stone. He was empirically started on IV antibiotics and at time of discharge urine culture still pending. He will be discharged on oral antibiotics, ciprofloxacin, to complete in its entirety. On admission patient's renal function was mildly elevated from baseline to 1.7. And on day of discharge his renal function was back to baseline at 1.6. His Benicar was initially held due to mild elevation in renal function this will be resumed on discharge. Hemodynamically stayed stable throughout hospital stay. On day of discharge he was in good spirits without significant stent pain. He was tolerating diet and moving bowels. Discharge Exam Please see Dr. Lazaro's addendum for physical exam findings on discharge Updated Medication List Medication Instructions Recorded Confirmed Type amlodipine 10 mg tablet 10 mg PO HS 08/03/19 12/02/22 History atorvastatin 10 mg tablet (Lipitor) 10 mg PO QAM 08/03/19 12/02/22 History olmesartan 40 mg tablet (Benicar) 20 mg PO QAM 08/03/19 12/02/22 History omeprazole magnesium 20 mg 20 mg PO DAILY PRN 08/03/19 12/02/22 History tablet,delayed release (Prilosec HEARTBURN/INDIGESTION OTC) aspirin 81 mg tablet,delayed 81 mg PO DAILY 12/02/22 12/02/22 History release ondansetron 4 mg disintegrating 4 mg translingual Q8H PRN 12/02/22 12/02/22 History tablet NAUSEA/VOMITING ciprofloxacin HCl 500 mg tablet 500 mg PO BID #10 tabs 12/03/22 Rx (Cipro) oxycodone-acetaminophen 5 mg-325 1 tab PO QID PRN Pain #12 tabs 12/03/22 Rx mg tablet phenazopyridine 100 mg tablet 100 mg PO Q8H PRN pain #15 tabs 12/03/22 Rx (Pyridium) polyethylene glycol 3350 17 gram 17 g PO DAILY PRN constipation #14 12/03/22 Rx oral powder packet (Miralax) ea tamsulosin 0.4 mg capsule 0.4 mg PO DAILY 30 days #30 caps 12/03/22 Rx Hospital Stay Data Consultations 12/02/22 04:43 Consult Urology Routine ED Decision to Admit Stat Procedures Performed Operation Date: 12/02/22 13:10 Actual Procedures p Cystoscopy Left Retrograde Pyelogram and Stent Placement(Left) - Anil Malin DO Diagnostic Imagining Performed Retrograde Pyelogram 12/02/22 00:00 FL retrograde includes kub CLINICAL HISTORY: LTleft-sided cystourethrogram COMPARISON STUDY: CT abdomen and pelvis of same day FLUOROSCOPY TIME: 11 seconds FLUOROSCOPY IMAGES: 4 EXPOSURE DOSE: 2.53 mGy FINDINGS: A left-sided stent appears to be in satisfactory positioning. Mild left-sided hydronephrosis redemonstrated. IMPRESSION: Fluoroscopic assistance as above. ACT 112: Negative or not required by law. Electronically signed by: Parish Perez M.D. 12/02/2022 4:21 PM Abdomen/Pelvis CT 12/02/22 02:57 Exam(s): CT ABDOMEN + PELVIS Without Contrast EXAM: CT Abdomen and Pelvis Without Intravenous Contrast CLINICAL HISTORY: Reason for exam: L flank pain, known stone @ OSH. TECHNIQUE: Axial computed tomography images of the abdomen and pelvis without intravenous contrast. Automated exposure control was utilized for the study. A dose lowering technique was utilized adhering to the principles of ALARA. COMPARISON: No relevant prior studies available. FINDINGS: Lung bases: Unremarkable. No mass. No consolidation. Mediastinum: Small hiatal hernia. ABDOMEN: Liver: Unremarkable. Gallbladder and bile ducts: Distended gallbladder. No obvious wall thickening or calcified stones. No ductal dilation. Pancreas: Unremarkable. No ductal dilation. Spleen: Unremarkable. No splenomegaly. Adrenals: Unremarkable. No mass. Kidneys and ureters: 9 mm obstructing calculus in the mid left ureter. Moderate left hydroureteronephrosis and perinephric stranding. Nonobstructing small right renal calculus. 2 cm right renal, likely cyst. Stomach and bowel: Unremarkable. No obstruction. No mucosal thickening. PELVIS: Appendix: Normal appendix. Bladder: Unremarkable. No stones. Reproductive: Unremarkable as visualized. ABDOMEN and PELVIS: Intraperitoneal space: Unremarkable. No free air. No significant fluid collection. Bones/joints: Right hip prosthesis with some artifact in the pelvis multiple phleboliths in the pelvis. No acute fracture. No dislocation. Soft tissues: Fat-containing bilateral inguinal hernias. Small fat- containing umbilical hernia. Vasculature: See above. Lymph nodes: Unremarkable. No enlarged lymph nodes. IMPRESSION: 1. 9 mm obstructing calculus in the mid left ureter. Moderate left hydroureteronephrosis and perinephric stranding. 2. Nonobstructing small right renal calculus. Electronically signed by: Francisco Francois M.D. 12/02/22 04:02 AM Pending Results Patient Have Any Pending Studies at Discharge: Yes (Urine Culture pending) Discharge Instructions Given to Patient (Per Discharging Provider) MEDICATION CHANGES: Cipro 500 mg twice daily for additional 5 days -antibiotic. Recommend daily over the counter pro biotic while taking antibiotic, this can be picked up at local pharmacy. Pyridium 100 mg every 8 hours as needed for stent related pain. Continue Flomax 0.4 mg daily. You were previously prescribed oxycodone as needed for pain. You may utilize this every 6 hours for severe pain. Otherwise recommend treating pain with Tylenol or pyridium. Recommend daily MiraLAX to help keep stools soft and prevent straining. SUMMARY OF TEST RESULTS: You were admitted to hospital secondary to obstructive kidney stone in your left ureter. You were treated with IV fluid and IV antibiotic. You underwent urologic procedure on a cystoscopy and a stent was placed. You will follow-up with urology as an outpatient for definitive stone treatment. PENDING TEST RESULTS: Urine culture pending RECOMMENDATIONS FOR FOLLOW-UP: Please follow-up with primary care provider and urology as scheduled. Complete antibiotic, ciprofloxacin, in its entirety. Encourage your primary care provider and urologist to follow-up with pending urine culture. Recommending utilizing Pyridium and Tylenol for pain control. If you develop significant pain and require usage of oxycodone-acetaminophen recommend utilizing MiraLAX to prevent constipation. Also, oxycodone is combined with Tylenol. Be mindful if taking to not take additional Tylenol. Do not take more than 2000 mg of Tylenol in a 24-hour period. OTHER INSTRUCTIONS: Seek medical attention if you have: * temperature above 101 * chest pain or trouble breathing * abdominal pain, nausea, vomiting * diarrhea, dark stools or bloody stools * any unanswered questions or concerns Call 911 if symptoms are severe. Please take good care of yourself. It has been a pleasure taking care of you. Please take care of yourself. If you have any questions regarding your recent hospitalization please contact [facility] and request [facility] @ [phone]. Debbie Rosas PA-C Total Time Total Time Spent Total Time Spent (In Minutes): 45 minutes Supervising Physician Co-Signing Physician Notes Pt seen and examined by me, care coordinated w/ BGalo Rosas PA-C, please refer to her note above for full detail. Patient underwent cystoscopy yesterday with left ureteral stent placement. He is doing very well. Reports mild hematuria which is improving. He is alert oriented and answering questions appropriately. Lungs are clear to auscultation bilaterally, heart sounds regular, abdomen soft nontender nondistended. No lower extremity edema, skin is warm dry well-perfused. Patient will be discharged on oral antibiotics, ciprofloxacin, and he will follow-up with urology and primary care provider. MD Tejas
== END 2022-12-03 13:14 | disposition home or self-care (01) ==
LOC: ED 02:24 → INTOOBSV 05:10 → 3W 05:10